=== PATIENT | female | born 1935 | race Caucasian/White ===

== ENCOUNTER 2017-11-12 19:50 | Inpatient (IN) | payer OTHER, MEDICAID ==
--- NOTE | 2017-11-12 20:04 | EDPHY ---
H & P Time Seen by Provider: 11/12/17 19:54 HPI/ROS: CHIEF COMPLAINT: Pneumonia HISTORY OF PRESENT ILLNESS: The patient is an 82-year-old female who comes from [facility] with a diagnosis of pneumonia. According to EMS report and paperwork it appears as though she was diagnosed with pneumonia over a week ago. On the she was started on oral azithromycin. The next day she had doxycycline. On the she was started on p.o. Levaquin. Today she was given IM Rocephin. intermediate staff told paramedics that they wanted to give IV Levaquin but could not establish an IV. The patient has been on 4 L of oxygen since her diagnosis and is saturating 93%. She has not had a fever. She denies having any type of pulmonary history to me. She also denies any type of cardiac history although according to the custodial record she has a history of atrial fibrillation and CHF. She also has diabetes and stage III renal disease. REVIEW OF SYSTEMS: Constitutional: denies: chills, fever, recent illness, recent injury EENTM: denies: blurred vision, double vision, nose congestion Respiratory: See HPI Cardiac: denies: chest pain, irregular heart rate, lightheadedness, palpitations Gastrointestinal/Abdominal: denies: abdominal pain, diarrhea, nausea, vomiting, blood streaked stools Genitourinary: denies: dysuria, frequency, hematuria, pain Musculoskeletal: denies: joint pain, muscle pain Skin: denies: lesions, rash, jaundice, bruising Neurological: denies: headache, numbness, paresthesia, tingling, dizziness, weakness Hematologic/Lymphatic: denies: blood clots, easy bleeding, easy bruising Immunologic/allergic: denies: HIV/AIDS, transplant EXAM: GENERAL: Weak, pale. HEAD: Atraumatic, normocephalic. EYES: Pupils equal round and reactive to light, extraocular movements intact, sclera anicteric, conjunctiva are normal. ENT: TMs normal, nares patent, oropharynx clear without exudates. Moist mucous membranes. NECK: Normal range of motion, supple without lymphadenopathy or JVD. LUNGS: Left lower lobe rhonchi HEART: Regular rate and rhythm without murmurs, rubs or gallops. ABDOMEN: Soft, nontender, normoactive bowel sounds. No guarding, no rebound. No masses appreciated. BACK: No CVA tenderness, no spinal tenderness, step-offs or deformities EXTREMITIES: Normal range of motion, no pitting or edema. No clubbing or cyanosis. NEUROLOGICAL: Cranial nerves II through XII grossly intact. Normal speech, normal gait. 5/5 strength, normal movement in all extremities, normal sensation PSYCH: Normal mood, normal affect. SKIN: Warm, dry, normal turgor, no visible rashes or lesions. Source: Patient Exam Limitations: Clinical condition - Medical/Surgical History Hx Asthma: No Hx Chronic Respiratory Disease: No Hx Diabetes: Yes Hx Cardiac Disease: Yes Hx Renal Disease: Yes Hx Cirrhosis: No Hx Alcoholism: No - Family History Significant Family History: No pertinent family hx - Social History Alcohol Use: Sober Drug Use: None Constitutional: Initial Vital Signs O2 Sat (%) 96 11/12/17 20:00 O2 Delivery Mode Nasal [place] O2 (L/minute) 3 Allergies/Adverse Reactions: ciprofloxacin Allergy (Verified 11/12/17 20:05) Sulfa (Sulfonamide Antibiotics) Allergy (Verified 11/12/17 20:05) Home Medications: Medication Instructions Recorded Acetaminophen [Tylenol ES 500 mg 500 mg PO BID 11/12/17 (*)] Acetaminophen [Tylenol ES 500 mg 500 mg PO Q6 PRN 11/12/17 (*)] Ascorbic Acid [Vitamin C 250 mg 250 mg PO BID 11/12/17 (*)] Azithromycin [Zithromax] 500 mg PO DAILY 11/12/17 Bisacodyl [Dulcolax] 10 mg RC DAILY PRN 11/12/17 Calcium Carbonate [Tums 500MG (*)] 500 mg PO Q4 PRN 11/12/17 Cyanocobalamin [Vitamin B12 (*)] 1,000 mcg PO DAILY 11/12/17 Docusate Sodium [Colace] 200 mg PO BID 11/12/17 Ergocalciferol (Vitamin D2) 50,000 unit PO DODGE 11/12/17 [Vitamin D2] FLUoxetine [Prozac 10 MG (*)] 10 mg PO DAILY 11/12/17 FLUoxetine [Prozac 20 MG (*)] 20 mg PO DAILY 11/12/17 Ferrous Sulfate [Ferrous Sulf 325 325 mg PO BID 11/12/17 MG (*)] Fluticasone Nasal [Flonase Nasal 1 sprays NASAL BID 11/12/17 [place] (RX)] Herbals/Supplements -Info Only 1 ea PO DAILY 11/12/17 Hydralazine HCl 100 mg PO TID 11/12/17 Hydrocortisone 1% [Hydrocortisone 1 lizabeth TP Q4 PRN 11/12/17 1% cream (*)] Insulin Glargine [Lantus 100 16 units SC HS 11/12/17 UNITS/ML (*)] Insulin Regular Human [Humulin R 6 unit SC HS PRN 11/12/17 100 units/ml (*)] Ipratropium/Albuterol [Duoneb (*)] 3 ml IH QID 11/12/17 Levothyroxine [Synthroid 75 mcg 75 mcg PO DAILY06 11/12/17 (*)] Lidocaine 5% [Lidocaine 5% Oint] 1 lizabeth TP TID PRN 11/12/17 Methenamine Ghulam [Hiprex 1 gm (*)] 0.5 gm PO BID 11/12/17 Metoprolol Tartrate [Lopressor 25 25 mg PO BID 11/12/17 mg (*)] Nystatin Powder [Mycostatin Powder 1 lizabeth TP Q8 PRN 11/12/17 (RX)] Omeprazole 20 mg PO DAILY 11/12/17 Ondansetron Odt [Zofran Odt 4 mg 4 mg PO Q8 PRN 11/12/17 (*)] Polyethylene Glycol 3350 [Miralax 17 gm PO DAILY PRN 11/12/17 17 gm (*)] Polyethylene Glycol 3350 [Miralax 17 gm PO MOTH@09 11/12/17 17 gm (*)] Pregabalin [Lyrica] 25 mg PO BID 11/12/17 Sennosides 8.6 mg PO BID 11/12/17 Sennosides/Docusate Sodium 1 each PO DAILY PRN 11/12/17 [Senokot-S (OTC)] Simethicone [Gas Relief] 80 mg PO Q6 PRN 11/12/17 Sodium Bicarbonate [Na Bicarb 650 650 mg PO DAILY 11/12/17 MG (RX)] Vitamin B Complex/Folic Acid 0.4 mg PO DAILY 11/12/17 [B-Complex Tablet] amLODIPine BESYLATE [Norvasc 10 mg 10 mg PO DAILY 11/12/17 (*)] cefTRIAXone [Rocephin 1 gm Vial] 1 gm IM ONCE 11/12/17 guaiFENesin [Mucinex 600 MG (*)] 600 mg PO BID 11/12/17 guaiFENesin/DEXTROMETHORPHAN 10 ml PO Q6 PRN 11/12/17 [Robitussin Dm Oral Liquid (*)] levOFLOXACIN [levAQUIN (*)] 500 mg PO DAILY 11/12/17 Medical Decision Making ED Course/Re-evaluation: The patient has a right upper lobe pneumonia. She is anemic. I performed a rectal exam and is black. I will order type and screen and 2 units. I paged hospital service admission and will seek antibiotic guidance. She does not meet criteria for severe sepsis. Differential Diagnosis: Partial list of the Differential diagnosis considered include but were not limited to; pneumonia, anemia, GI bleed, sepsis and although unlikely based on the history and physical exam, I also considered C diff, meningitis, PE, acute coronary disease. Critical Care Time: Critical care time spent by me, Dr. Pompa exclusive with this patient was 45 minutes, exclusive of the PA time exclusive of procedures. The organ system that was at risk was pulmonary and cardiovascular and I gave antibiotics, evaluation, fluids, blood, consultation and admission to prevent worsening of the patient's condition - Data Points Laboratory Results: Laboratory Results 11/13/17 06:37 11/13/17 06:37 Medications Given: Acetaminophen (Tylenol) 650 mg PO Q4HRS PRN PRN Reason: Pain, Mild/Fever, Can Take PO Stop: 05/11/18 22:42 Last Admin: 11/15/17 13:03 Dose: 650 mg Albuterol (Proventil Neb) 3 ml IH Q2HRS PRN PRN Reason: Short of Breath/Dyspnea Stop: 05/11/18 22:42 Last Admin: 11/13/17 20:52 Dose: 3 ml Albuterol/Ipratropium (Duoneb) 3 ml IH QID [facility] Stop: 05/12/18 11:59 Last Admin: 11/15/17 14:50 Dose: Not Given Amlodipine Besylate (Norvasc) 10 mg PO DAILY [facility] Stop: 05/13/18 08:59 Last Admin: 11/15/17 09:08 Dose: 10 mg Ascorbic Acid (Vitamin C) 250 mg PO BID [facility] Stop: 05/12/18 20:59 Last Admin: 11/15/17 09:09 Dose: 250 mg Docusate Sodium (Colace) 200 mg PO BID [place] Stop: 05/12/18 20:59 Last Admin: 11/15/17 09:07 Dose: 200 mg Ferrous Sulfate (Ferrous Sulfate) 325 mg PO BID [place] Stop: 05/12/18 20:59 Last Admin: 11/15/17 09:11 Dose: 325 mg Fluoxetine HCl (Prozac) 10 mg PO DAILY [place] Stop: 05/12/18 08:59 Last Admin: 11/15/17 09:09 Dose: 10 mg Fluoxetine HCl (Prozac) 20 mg PO DAILY [place] Stop: 05/12/18 08:59 Last Admin: 11/15/17 09:10 Dose: 20 mg Fluticasone Propionate (Flonase Nasal [place]) 1 sprays [place] BID [facility] Stop: 05/12/18 20:59 Last Admin: 11/15/17 09:13 Dose: 1 spray Guaifenesin (Mucinex) 600 mg PO BID [facility] Stop: 05/12/18 20:59 Last Admin: 11/15/17 09:09 Dose: 600 mg Hydralazine HCl (Apresoline) 100 mg PO TID [facility] Stop: 05/12/18 15:59 Last Admin: 11/15/17 09:08 Dose: 100 mg Piperacillin/Tazobactam/Dextrose (Zosyn 3.375 Gm (Premix)) 50 mls @ 100 mls/hr IV Q6HRS [facility] PRN Reason: Protocol Stop: 12/14/17 17:59 Last Admin: 11/15/17 12:08 Dose: 50 mls Insulin Glargine (Lantus Syringe) 16 units SC HS [facility] Stop: 05/12/18 20:59 Last Admin: 11/14/17 21:30 Dose: 16 units Insulin Human Lispro (Humalog Lispro) 0 unit SC TIDMEAL [place] PRN Reason: Protocol Stop: 05/12/18 07:59 Last Admin: 11/15/17 12:06 Dose: Not Given Levothyroxine Sodium (Synthroid) 75 mcg PO DAILY06 [facility] Stop: 05/13/18 05:59 Last Admin: 11/15/17 05:35 Dose: 75 mcg Melatonin (Melatonin) 3 mg PO HS PRN PRN Reason: Sleep/Insomnia Stop: 05/13/18 22:52 Last Admin: 11/14/17 23:11 Dose: 3 mg Metoprolol Tartrate (Lopressor) 25 mg PO BID [place] Stop: 05/12/18 10:59 Last Admin: 11/15/17 09:10 Dose: 25 mg Miscellaneous Medication (Vitamin B Complex/Folic Acid [B-Complex Tablet]) 0.4 mg PO DAILY [facility] Stop: 05/13/18 08:59 Last Admin: 11/15/17 09:13 Dose: Not Given Olanzapine (Zyprexa) 2.5 mg PO HS PRN PRN Reason: anxiety Stop: 05/13/18 20:59 Last Admin: 11/14/17 20:49 Dose: 2.5 mg Ondansetron HCl (Zofran) 4 mg IVP Q4HRS PRN PRN Reason: Nausea/Vomiting, Can't Take PO Stop: 05/11/18 22:42 Last Admin: 11/13/17 23:11 Dose: 4 mg Pantoprazole Sodium (Protonix) 40 mg PO DAILY [place] Stop: 05/12/18 11:29 Last Admin: 11/15/17 09:12 Dose: 40 mg Polyethylene Glycol (Miralax) 17 gm PO MOTH@09 [facility] Stop: 05/13/18 08:59 Last Admin: 11/14/17 09:09 Dose: 17 gm Pregabalin (Lyrica) 25 mg PO BID [place] Stop: 05/12/18 10:59 Last Admin: 11/15/17 09:07 Dose: 25 mg Senna (Senokot) 1 tab PO BID [place] Stop: 05/12/18 20:59 Last Admin: 11/15/17 09:07 Dose: 1 tab Sodium Bicarbonate (Na Bicarb) 650 mg PO DAILY [place] Stop: 05/13/18 08:59 Last Admin: 11/15/17 09:10 Dose: 650 mg Tramadol HCl (Ultram) 25 mg PO Q6 PRN PRN Reason: Pain, Moderate Able to Take PO Stop: 05/13/18 17:04 Last Admin: 11/14/17 23:28 Dose: 25 mg Vitamin B Complex (Vitamin B12) 1,000 mcg PO DAILY [place] Stop: 05/12/18 10:59 Last Admin: 11/15/17 09:09 Dose: 1,000 mcg Discontinued Medications Haloperidol Lactate (Haldol Injection) 2 mg IVP ONCE ONE Stop: 11/14/17 04:08 Last Admin: 11/14/17 04:13 Dose: 2 mg Cefepime HCl 1 gm/ Sterile (Water) 11.3 mls @ 135.6 mls/hr IV EDNOW ONE PRN Reason: Protocol Stop: 11/12/17 21:46 Last Admin: 11/12/17 22:11 Dose: 11.3 mls Cefepime HCl 2 gm/ Sterile (Water) 12.5 mls @ 150 mls/hr IV DAILY [place] PRN Reason: Protocol Stop: 12/13/17 08:59 Last Admin: 11/14/17 09:13 Dose: 12.5 mls Sodium Chloride (Ns) 1,000 mls @ 100 mls/hr IV CONT [place] Stop: 05/12/18 17:59 Last Admin: 11/13/17 17:27 Dose: 1,000 mls Methenamine Mandelate (Methenamine Ghulam) 0.5 gm PO BID [place] PRN Reason: Protocol Stop: 12/13/17 20:59 Last Admin: 11/14/17 09:11 Dose: 0.5 gm Olanzapine (Zyprexa) 2.5 mg PO ONCE ONE Stop: 11/14/17 22:52 Last Admin: 11/14/17 23:11 Dose: 2.5 mg Departure - Departure Disposition: [facility] Inpatient Acute Clinical Impression: Upper GI bleed Pneumonia Qualifiers: Pneumonia type: due to unspecified organism Laterality: right Lung location: upper lobe of lung Qualified Code(s): J18.1 - Lobar pneumonia, unspecified organism Sepsis Qualifiers: Sepsis type: sepsis due to unspecified organism Qualified Code(s): A41.9 - Sepsis, unspecified organism Condition: Fair
[2017-11-12 20:54] LABS: PLATELET COUNT 273 10^3/uL (150-400)
[2017-11-12 21:05] LABS: INR 1.14 (0.83-1.16); PROTIME(PATIENT) 14.8 SEC (12.0-15.0)
[2017-11-12] MEDS ORDERED: CEFEPIME HCL 1 GM in STERILE WATER INJ 11.3 ML IV ONE (21:42)
[2017-11-12] MEDS ORDERED: ONDANSETRON 4 MG/2 ML VIAL IVP PRN (22:43)
[2017-11-12] MEDS ORDERED: ONDANSETRON DISINTEGRATING 4 MG TAB PO PRN (22:43)
[2017-11-12] MEDS ORDERED: ALBUTEROL 3 ML DEYVIAL IH PRN (22:43)
[2017-11-12] MEDS ORDERED: D50W 25 GM/50 ML SYR IVP PRN (23:47)
[2017-11-12] MEDS ORDERED: D50W 25 GM/50 ML VIAL IVP PRN (23:48)
--- NOTE | 2017-11-13 01:49 | PDGENHP ---
History and Physical - Chief Complaint Cough, fatigue - History of Present Illness 82 yo F w/ AF, CHF, DM, CKD, and HTN presents with 3 weeks of fatigue, cough, sputum production, and chills. Patient has been under treatment for pneumonia for [address] [facility]. She initially received azithromycin, then Levaquin , and finally CTX x1. It is unclear why antibiotics were changed but I assume 2/ 2 lack of improvement. She has been hypoxic and does not usually require O2. In addition, patient has noted some dark stools for at least a month. She has a hard time describing exactly how long this has been going on. Rectal exam in the ED did reveal dark stools. History Information - Allergies/Home Medication List Allergies/Adverse Reactions: ciprofloxacin Allergy (Verified 11/12/17 20:05) Sulfa (Sulfonamide Antibiotics) Allergy (Verified 11/12/17 20:05) Home Medications: Acetaminophen [Tylenol ES 500 mg (*)] 500 mg PO BID 11/12/17 [Last Taken Unknown ] Acetaminophen [Tylenol ES 500 mg (*)] 500 mg PO Q6 PRN 11/12/17 [Last Taken Unknown] Ascorbic Acid [Vitamin C 250 mg (*)] 250 mg PO BID 11/12/17 [Last Taken Unknown] Azithromycin [Zithromax] 500 mg PO DAILY 11/12/17 [Last Taken Unknown] Bisacodyl [Dulcolax] 10 mg RC DAILY PRN 11/12/17 [Last Taken Unknown] Calcium Carbonate [Tums 500MG (*)] 500 mg PO Q4 PRN 11/12/17 [Last Taken Unknown ] Cyanocobalamin [Vitamin B12 (*)] 1,000 mcg PO DAILY 11/12/17 [Last Taken Unknown ] Docusate Sodium [Colace] 200 mg PO BID 11/12/17 [Last Taken Unknown] Ergocalciferol (Vitamin D2) [Vitamin D2] 50,000 unit PO DODGE 11/12/17 [Last Taken Unknown] FLUoxetine [Prozac 10 MG (*)] 10 mg PO DAILY 11/12/17 [Last Taken Unknown] FLUoxetine [Prozac 20 MG (*)] 20 mg PO DAILY 11/12/17 [Last Taken Unknown] Ferrous Sulfate [Ferrous Sulf 325 MG (*)] 325 mg PO BID 11/12/17 [Last Taken Unknown] Fluticasone Nasal [Flonase Nasal [place] (RX)] 1 sprays NASAL BID 11/12/17 [Last Taken Unknown] Herbals/Supplements -Info Only 1 ea PO DAILY 11/12/17 [Last Taken Unknown] Hydralazine HCl 100 mg PO TID 11/12/17 [Last Taken Unknown] Hydrocortisone 1% [Hydrocortisone 1% cream (*)] 1 lizabeth TP Q4 PRN 11/12/17 [Last Taken Unknown] Insulin Glargine [Lantus 100 UNITS/ML (*)] 16 units SC HS 11/12/17 [Last Taken Unknown] Insulin Regular Human [Humulin R 100 units/ml (*)] 6 unit SC HS PRN 11/12/17 [ Last Taken Unknown] Ipratropium/Albuterol [Duoneb (*)] 3 ml IH QID 11/12/17 [Last Taken Unknown] Levothyroxine [Synthroid 75 mcg (*)] 75 mcg PO DAILY06 11/12/17 [Last Taken Unknown] Lidocaine 5% [Lidocaine 5% Oint] 1 lizabeth TP TID PRN 11/12/17 [Last Taken Unknown] Methenamine Ghulam [Hiprex 1 gm (*)] 0.5 gm PO BID 11/12/17 [Last Taken Unknown] Metoprolol Tartrate [Lopressor 25 mg (*)] 25 mg PO BID 11/12/17 [Last Taken Unknown] Nystatin Powder [Mycostatin Powder (RX)] 1 lizabeth TP Q8 PRN 11/12/17 [Last Taken Unknown] Omeprazole 20 mg PO DAILY 11/12/17 [Last Taken Unknown] Ondansetron Odt [Zofran Odt 4 mg (*)] 4 mg PO Q8 PRN 11/12/17 [Last Taken Unknown] Polyethylene Glycol 3350 [Miralax 17 gm (*)] 17 gm PO DAILY PRN 11/12/17 [Last Taken Unknown] Polyethylene Glycol 3350 [Miralax 17 gm (*)] 17 gm PO MOTH@09 11/12/17 [Last Taken Unknown] Pregabalin [Lyrica] 25 mg PO BID 11/12/17 [Last Taken Unknown] Sennosides 8.6 mg PO BID 11/12/17 [Last Taken Unknown] Sennosides/Docusate Sodium [Senokot-S (OTC)] 1 each PO DAILY PRN 11/12/17 [Last Taken Unknown] Simethicone [Gas Relief] 80 mg PO Q6 PRN 11/12/17 [Last Taken Unknown] Sodium Bicarbonate [Na Bicarb 650 MG (RX)] 650 mg PO DAILY 11/12/17 [Last Taken Unknown] Vitamin B Complex/Folic Acid [B-Complex Tablet] 0.4 mg PO DAILY 11/12/17 [Last Taken Unknown] amLODIPine BESYLATE [Norvasc 10 mg (*)] 10 mg PO DAILY 11/12/17 [Last Taken Unknown] cefTRIAXone [Rocephin 1 gm Vial] 1 gm IM ONCE 11/12/17 [Last Taken 11/12/17] guaiFENesin [Mucinex 600 MG (*)] 600 mg PO BID 11/12/17 [Last Taken Unknown] guaiFENesin/DEXTROMETHORPHAN [Robitussin Dm Oral Liquid (*)] 10 ml PO Q6 PRN [Last Taken Unknown] levOFLOXACIN [levAQUIN (*)] 500 mg PO DAILY 11/12/17 [Last Taken Unknown] I have personally reviewed and updated: family history, medical history - Past Medical History atrial fibrillation, CHF, diabetes type 2, hypertension Additional medical history: CKD - Family History Positive for: cancer, diabetes type II, hypertension - Social History Smoking Status: Never smoked Alcohol Use: Sober Drug Use: None Review of Systems Review of Systems: ROS: 10pt was reviewed & negative except for what was stated in HPI & below Physical Exam Physical Exam: Temp Pulse Resp BP Pulse Ox 36.8 C 77 20 137/64 H 94 11/12/17 23:18 11/12/17 23:18 11/12/17 23:18 11/12/17 23:18 11/12/17 23:18 O2 (L/minute) 3 Constitutional: no apparent distress, obese Eyes: PERRL Ears, Nose, Mouth, Throat: moist mucous membranes, no oral mucosal ulcers Cardiovascular: regular rate and rhythym, systolic murmur Respiratory: no respiratory distress, inspiratory crackles (RUL) Gastrointestinal: normoactive bowel sounds, soft, non-tender abdomen Skin: warm, normal color Musculoskeletal: full muscle strength, no muscle tenderness Neurologic: AAOx3, CN II-XII Intact Psychiatric: interacting appropriately, not anxious Lab Data & Imaging Review 11/12/17 20:38 11/12/17 20:38 WBC 8.87 10^3/uL (3.80-9.50) 11/12/17 20:38 RBC 2.93 10^6/uL (4.18-5.33) L 11/12/17 20:38 Hgb 8.6 g/dL (12.6-16.3) L 11/12/17 20:38 Hct 26.3 % (38.0-47.0) L 11/12/17 20:38 MCV 89.8 fL (81.5-99.8) 11/12/17 20:38 MCH 29.4 pg (27.9-34.1) 11/12/17 20:38 MCHC 32.7 g/dL (32.4-36.7) 11/12/17 20:38 RDW 14.0 % (11.5-15.2) 11/12/17 20:38 Plt Count 273 10^3/uL (150-400) 11/12/17 20:38 MPV 10.3 fL (8.7-11.7) 11/12/17 20:38 Neut % (Auto) 80.6 % (39.3-74.2) H 11/12/17 20:38 Lymph % (Auto) 7.9 % (15.0-45.0) L 11/12/17 20:38 Ray % (Auto) 9.7 % (4.5-13.0) 11/12/17 20:38 Eos % (Auto) 1.0 % (0.6-7.6) 11/12/17 20:38 Baso % (Auto) 0.3 % (0.3-1.7) 11/12/17 20:38 Nucleat RBC Rel Count 0.0 % (0.0-0.2) 11/12/17 20:38 Absolute Neuts (auto) 7.15 10^3/uL (1.70-6.50) H 11/12/17 20:38 Absolute Lymphs (auto) 0.70 10^3/uL (1.00-3.00) L 11/12/17 20:38 Absolute Monos (auto) 0.86 10^3/uL (0.30-0.80) H 11/12/17 20:38 Absolute Eos (auto) 0.09 10^3/uL (0.03-0.40) 11/12/17 20:38 Absolute Basos (auto) 0.03 10^3/uL (0.02-0.10) 11/12/17 20:38 Absolute Nucleated RBC 0.00 10^3/uL (0-0.01) 11/12/17 20:38 Immature Gran % 0.5 % (0.0-1.1) 11/12/17 20:38 Immature Gran # 0.04 10^3/uL (0.00-0.10) 11/12/17 20:38 PT 14.8 SEC (12.0-15.0) 11/12/17 20:38 INR 1.14 (0.83-1.16) 11/12/17 20:38 APTT 45.6 SEC (23.0-38.0) H 11/12/17 20:38 VBG Lactic Acid 0.6 mmol/L (0.7-2.1) L 11/12/17 20:38 Sodium 134 mEq/L (135-145) L 11/12/17 20:38 Potassium 4.1 mEq/L (3.5-5.2) 11/12/17 20:38 Chloride 106 mEq/L (97-110) 11/12/17 20:38 Carbon Dioxide 19 mEq/l (22-31) L 11/12/17 20:38 Anion Gap 9 mEq/L (8-16) 11/12/17 20:38 BUN 52 mg/dL (7-23) H 11/12/17 20:38 Creatinine 2.4 mg/dL (0.6-1.0) H 11/12/17 20:38 Estimated GFR 19 11/12/17 20:38 Glucose 135 mg/dL (70-100) H 11/12/17 20:38 POC Glucose 142 mg/dL (70-100) H 11/12/17 23:41 Calcium 7.6 mg/dL (8.5-10.4) L 11/12/17 20:38 Total Bilirubin 0.3 mg/dL (0.1-1.4) 11/12/17 20:38 Procalcitonin 0.79 ng/mL (0.02-0.10) H 11/12/17 20:38 Urine Color YELLOW 11/12/17 21:05 Urine Appearance MODERATELY TURBID 11/12/17 21:05 Urine pH 5.0 (5.0-7.5) 11/12/17 21:05 Ur Specific [place] 1.012 (1.002-1.030) 11/12/17 21:05 Urine Protein 2+ (NEGATIVE) H 11/12/17 21:05 Urine Ketones NEGATIVE (NEGATIVE) 11/12/17 21:05 Urine Blood NEGATIVE (NEGATIVE) 11/12/17 21:05 Urine Nitrate NEGATIVE (NEGATIVE) 11/12/17 21:05 Urine Bilirubin NEGATIVE (NEGATIVE) 11/12/17 21:05 Urine Urobilinogen NEGATIVE EU (0.2-1.0) 11/12/17 21:05 Ur Leukocyte Esterase NEGATIVE (NEGATIVE) 11/12/17 21:05 Urine RBC 1-3 /hpf (0-3) 11/12/17 21:05 Urine WBC 5-10 /hpf (0-3) H 11/12/17 21:05 Ur Epithelial Cells TRACE /lpf (NONE-1+) 11/12/17 21:05 Amorphous Sediment PRESENT /hpf (NONE-1+) 11/12/17 21:05 Urine Bacteria TRACE /hpf (NONE SEEN) H 11/12/17 21:05 Urine Mucus TRACE /lpf (NONE-1+) 11/12/17 21:05 Urine Glucose 1+ (NEGATIVE) H 11/12/17 21:05 Patient ABO/Rh B NEGATIVE 11/12/17 21:05 Antibody Screen NEGATIVE 11/12/17 21:05 Crossmatch IS Only See Detail 11/12/17 21:05 Imaging Review: Imaging Impressions Chest X-Ray 11/12/17 19:59 Impression: 1. Hazy opacification of the right upper chest compatible with infectious or inflammatory infiltrate. 2. Moderate cardiomegaly with pulmonary vascular congestion. Assessment & Plan Assessment: 82 yo F w/ CHF, HTN, DM, AF, and CKD presents with pneumonia and associated hypoxia. Plan: 1. Pneumonia - Based on productive cough, hypoxia, and RUL infiltrate on CXR. Patient received azithromycin, levofloxacin, and CTX and [place] with minimal improvement. No evidence of sepsis physiology on admission. Procalcitonin elevated at 0.7 and lactic acid WNL. - Will broaden to Cefepime (renal dosing) noting lack of improvement with myriad of prior antibiotics - Blood cultures, respiratory PCR 2. AHRF - Likely 2/2 above. She does not require O2 at baseline; currently on 2- 3 L/min O2 via NC. - PNA management as above - Incentive spirometry, wean O2 as able 3. Normocytic anemia - Hgb 8.6 on admission, unclear chronicity noting no prior values for comparison. Patient does note dark stools for at least a month but she is also on oral iron, which may be contributing. She is hemodynamically stable and not tachycardic; she denies prior hx of significant GIB. - Transfused 2u pRBC by ED - Monitor CBC - Transfuse for Hgb<7 - If Hgb stable likely appropriate for outpatient colonoscopy 4. IDDM - Uses insulin glargine 16u qHS + SSI as outpatient, will continue here. 5. HTN - Continue home meds, needs med reconciliation. 6. Hypothyroid - On LTX. Diet - Regular Code - Full Ppx - SCDs noting possible melena Dispo - Admit under observation status
[2017-11-13] MEDS: ACETAMINOPHEN 325 MG TAB PO PRN ×2 (04:43→12:27)
[2017-11-13 06:53] LABS: PLATELET COUNT 269 10^3/uL (150-400)
[2017-11-13] MEDS: INSULIN LISPRO 100 UNIT/ML SC SCH ×3 (08:07→18:32)
[2017-11-13] MEDS: CEFEPIME HCL 2 GM in STERILE WATER INJ 12.5 ML IV SCH (08:08)
--- NOTE | 2017-11-13 09:29 | WOCRNPDOC ---
WOCRN Advanced Assessment Note - Skin Integrity Problem, Advanced Assess Right Medial Heel Pressure Injury Dressing Type: Open to Air [place] Wound Tissue: Blanching, Erythema Skin Integrity Problem Comment: No pressure injury at this time. Area is blanching but painful. Please offload agressively. Bilateral Buttock Dressing Type: [place] Life Integumentary Issue Intervention: Visualized Under Dressing Site Measurement - Head-to-Toe Length X Width X Depth (cm): 1.5x1.2x0.1 on left , right side intact Pressure Injury Stage: Stage 2 Pressure Injury Present on Admit: Yes Skin Integrity Problem Comment: Right: small round area of blanching erythema with scar tissue. Left: paritial thickness opening that is most likely friction related rather than pressure but may have components of both. Wound care will sign off. Please offload per policy.
[2017-11-13] MEDS ORDERED: BISACODYL 10 MG SUPP PR PRN (10:54)
[2017-11-13] MEDS ORDERED: CALCIUM CARBONATE 500 MG CHEWABLE TAB PO PRN (10:54)
[2017-11-13] MEDS ORDERED: SIMETHICONE 80 MG TAB CHEW PO PRN (10:54)
[2017-11-13] MEDS ORDERED: POLYETHYLENE GLYCOL 3350 17 GM PKT PO PRN (10:54)
[2017-11-13] MEDS ORDERED: HYDROCORTISONE 1% CREAM TP PRN (10:54)
[2017-11-13] MEDS ORDERED: ACETAMINOPHEN 500 MG TAB PO PRN (10:54)
[2017-11-13] MEDS ORDERED: SENNOSIDES/DOCUSATE SODIUM TAB PO PRN (10:54)
[2017-11-13] MEDS ORDERED: NYSTATIN POWDER 15 GM BTL TP PRN (10:54)
[2017-11-13] MEDS ORDERED: ONDANSETRON DISINTEGRATING 4 MG TAB PO PRN (10:54)
[2017-11-13] MEDS ORDERED: GUAIFENESIN/DM 10 ML UDCUP PO PRN (10:54)
[2017-11-13] MEDS ORDERED: Lidocaine 5% [Lidocaine 5% Oint] 1 APP TP PRN (10:54)
[2017-11-13] MEDS ORDERED: INSULIN REGULAR HUMAN 100 UNIT/ML UNIT SC PRN (11:30)
[2017-11-13] MEDS: IPRATROPIUM/ALBUTEROL 3 ML DEYVIAL IH SCH ×2 (11:36→17:03)
[2017-11-13] MEDS: FLUoxetine 10 MG CAP PO SCH (12:11)
[2017-11-13] MEDS: FLUoxetine 20 MG CAP PO SCH (12:11)
[2017-11-13] MEDS: METOPROLOL TARTRATE 25 MG TAB PO SCH ×2 (12:12→21:51)
[2017-11-13] MEDS: PREGABALIN 25 MG CAP PO SCH ×2 (12:13→21:53)
[2017-11-13] MEDS: PANTOPRAZOLE SODIUM 40 MG TAB PO SCH (12:28)
[2017-11-13] MEDS: CYANO/VITAMIN B12 1000 MCG TAB PO SCH (12:28)
--- NOTE | 2017-11-13 14:00 | HOSPPROG ---
Hospitalist Progress Note Assessment/Plan: 82 yo F w/ CHF, HTN, DM, AF, and CKD presents with pneumonia and associated hypoxia. First encounter, chart reviewed. Plan: 1. Pneumonia - -productive cough, hypoxia, and RUL infiltrate on CXR. -Patient received azithromycin, levofloxacin, and CTX and [place] with minimal improvement. -No evidence of sepsis physiology on admission. -Procalcitonin elevated at 0.7 and lactic acid WNL. -Will broaden to Cefepime (renal dosing) noting lack of improvement with myriad of prior antibiotics -Blood cultures, respiratory PCR 2. AHRF - -Likely 2/2 above. She does not require O2 at baseline; currently on 2-3 L/min O2 via NC. -PNA management as above -Incentive spirometry, wean O2 as able 3. Normocytic anemia - -Hgb 8.6 on admission, unclear chronicity noting no prior values for comparison. -Patient does note dark stools for at least a month but she is also on oral iron , which may be contributing. -She is hemodynamically stable and not tachycardic; she denies prior hx of significant GIB. -Transfused 2u pRBC by ED -heme stool -Monitor CBC -Transfuse for Hgb<7 -If Hgb stable likely appropriate for outpatient colonoscopy 4. IDDM - -Uses insulin glargine 16u qHS + SSI as outpatient, will continue here. 5. HTN - -Continue home meds, med reconciled. 6. Hypothyroid - -On LTX. 7. Rash -on back -pt says intermittent -itches -follow, no specific pattern identified Diet - Regular Code - Full Ppx - SCDs noting possible melena Dispo - change to inpt status needs further treatment and evaluation in hospital Subjective: Very tired. Not feeling well. Objective: Vital Signs Temp Pulse Resp BP Pulse Ox 37.4 C 87 16 153/64 H 94 11/13/17 07:44 11/13/17 12:12 11/13/17 11:37 11/13/17 12:12 11/13/17 11:37 Laboratory Results 11/13/17 06:37 11/13/17 06:37 11/12/17 11/13/17 11/14/17 05:59 05:59 05:59 Intake Total 700 Output Total 2 Balance 698 PT 14.8 SEC (12.0-15.0) 11/12/17 20:38 INR 1.14 (0.83-1.16) 11/12/17 20:38 - Physical Exam Constitutional: appears nourished, chronically ill appearing, uncomfortable Eyes: PERRL, anicteric sclera, EOMI Ears, Nose, Mouth, Throat: moist mucous membranes, hearing normal, ears appear normal Cardiovascular: regular rate and rhythym, No JVD, No tachycardia, No edema Respiratory: no respiratory distress, no rales or rhonchi, reduced air movement Gastrointestinal: No tenderness, No ascites, No guarding, No distension Skin: warm, normal color, rash Musculoskeletal: normal joint ROM, no joint effusions, generalized weakness Neurologic: AAOx3 Psychiatric: not anxious, not encephalopathic, poor memory ICD10 Worksheet Patient Problems: Problems Problem Status Onset Pneumonia Acute Upper GI bleed Acute Sepsis Acute
--- NOTE | 2017-11-13 15:24 | PDMN ---
Medical Necessity Medical necessity: M282c PNA hypoxia currently 3 L to keeps sats > 90%, RUL infiltrate on CXR, cough, min. improvement on IV abx, cont IV abx( broaden to Cefepime), normocytic anemia pt received 2 units pRBC in ED - cont. monitoring > 2 midnights.
--- NOTE | 2017-11-13 16:08 | ASMTCMCOM ---
CM Note CM Note Notes: Spoke w/Sonya at [facility], pt is a jail care resident there, not [facility] as stated in H&P. Pt's son Noé states that his sister took care of her and her brother but his sister , so he moved them up here and her and her brother are now both at [facility]. DC Plan: LTC/ [facility] Date Signed: 11/13/2017 04:07 PM Electronically Signed By:Debora Ware RN
[2017-11-13] MEDS ORDERED: NS 1,000 ML IV SCH (18:00)
[2017-11-13] MEDS ORDERED: INSULIN GLARGINE 100 UNITS/ML UNIT SC SCH (21:00)
[2017-11-13] MEDS: FERROUS SULFATE 325 MG TAB PO SCH (21:51)
[2017-11-13] MEDS: ASCORBIC ACID 500 MG TAB PO SCH (21:52)
[2017-11-13] MEDS: SENNOSIDES 1 TAB PO SCH (21:52)
[2017-11-13] MEDS: guaiFENesin 600 MG TAB.ER PO SCH (21:53)
[2017-11-13] MEDS: METHENAMINE HIPP 1 GM TAB PO SCH (21:54)
[2017-11-13] MEDS: DOCUSATE SODIUM 100 MG CAP PO SCH (21:55)
[2017-11-13] MEDS: FLUTICASONE NASAL 120 SPRAYS/16 GM MDI EACHNARE SCH (23:07)
[2017-11-13] MEDS: INSULIN GLARGINE 100 UNITS/ML UNIT SC SCH (23:07)
[2017-11-13] MEDS: OLANZapine 2.5 MG TAB PO PRN (23:11)
[2017-11-14] MEDS: ACETAMINOPHEN 325 MG TAB PO PRN ×4 (03:13→20:49)
[2017-11-14] MEDS ORDERED: HALOPERIDOL LACT 5 MG/ML INJ IVP ONE (04:07)
[2017-11-14] MEDS: LEVOTHYROXINE 75 MCG TAB PO SCH (04:13)
[2017-11-14] MEDS: IPRATROPIUM/ALBUTEROL 3 ML DEYVIAL IH SCH ×4 (05:13→22:06)
[2017-11-14] MEDS ORDERED: Herbals/Supplements -Info Only PO SCH (09:00)
[2017-11-14] MEDS: INSULIN LISPRO 100 UNIT/ML SC SCH ×3 (09:04→18:25)
[2017-11-14] MEDS: POLYETHYLENE GLYCOL 3350 17 GM PKT PO SCH (09:09)
[2017-11-14] MEDS: DOCUSATE SODIUM 100 MG CAP PO SCH ×2 (09:10→21:30)
[2017-11-14] MEDS: PREGABALIN 25 MG CAP PO SCH ×2 (09:10→21:30)
[2017-11-14] MEDS: guaiFENesin 600 MG TAB.ER PO SCH ×2 (09:10→21:31)
[2017-11-14] MEDS: FLUoxetine 10 MG CAP PO SCH (09:10)
[2017-11-14] MEDS: METOPROLOL TARTRATE 25 MG TAB PO SCH ×2 (09:11→21:32)
[2017-11-14] MEDS: PANTOPRAZOLE SODIUM 40 MG TAB PO SCH (09:11)
[2017-11-14] MEDS: METHENAMINE HIPP 1 GM TAB PO SCH (09:11)
[2017-11-14] MEDS: SODIUM BICARBONATE 650 MG TAB PO SCH (09:11)
[2017-11-14] MEDS: CYANO/VITAMIN B12 1000 MCG TAB PO SCH (09:11)
[2017-11-14] MEDS: SENNOSIDES 1 TAB PO SCH ×2 (09:11→21:31)
[2017-11-14] MEDS: ASCORBIC ACID 500 MG TAB PO SCH ×2 (09:11→21:31)
[2017-11-14] MEDS: FERROUS SULFATE 325 MG TAB PO SCH ×2 (09:12→21:31)
[2017-11-14] MEDS: CEFEPIME HCL 2 GM in STERILE WATER INJ 12.5 ML IV SCH (09:13)
[2017-11-14] MEDS: FOLIC ACID PO SCH (09:14)
[2017-11-14] MEDS: FLUoxetine 20 MG CAP PO SCH (09:14)
[2017-11-14] MEDS: VITAMIN B COMPLEX PO SCH (09:14)
[2017-11-14] MEDS: FLUTICASONE NASAL 120 SPRAYS/16 GM MDI EACHNARE SCH ×2 (09:24→22:43)
[2017-11-14 09:59] LABS: PLATELET COUNT 298 10^3/uL (150-400)
[2017-11-14] MEDS: OLANZapine 2.5 MG TAB PO PRN ×2 (11:16→20:49)
--- NOTE | 2017-11-14 13:17 | HOSPPROG ---
Hospitalist Progress Note Assessment/Plan: 82 yo F w/ CHF, HTN, DM, AF, and CKD presents with pneumonia and associated hypoxia. Plan: 1. Pneumonia - -productive cough, hypoxia, and RUL infiltrate on CXR. -Patient received azithromycin, levofloxacin, and CTX and [place] with minimal improvement. -No evidence of sepsis physiology on admission. -Procalcitonin elevated at 0.7 and lactic acid WNL. -Was on Cefepime (renal dosing) will change to Zosyn -potential the abx causing increased confusion? -Blood cultures, respiratory PCR negative 2. AHRF - -Likely 2/2 above. She does not require O2 at baseline; currently on 2-3 L/min O2 via NC. -PNA management as above -Incentive spirometry, wean O2 as able 3. Normocytic anemia - -Hgb 8.6 on admission, unclear chronicity noting no prior values for comparison. -Patient does note dark stools for at least a month but she is also on oral iron , which may be contributing. -She is hemodynamically stable and not tachycardic; she denies prior hx of significant GIB. -Transfused 2u pRBC by ED -heme stool -Monitor CBC -Transfuse for Hgb<7 -Hgb stable likely appropriate for outpatient colonoscopy 4. IDDM - -Uses insulin glargine 16u qHS + SSI as outpatient, will continue here. 5. HTN - -Continue home meds, med reconciled. 6. Hypothyroid - -On LTX. 7. Rash -on back -pt says intermittent -itches -follow, no specific pattern identified 8. CRF -d/w Dr Wesley -appreciate consult 9.Acute on chronic confusion -cont supportive care Diet - Regular Code - Full Ppx - SCDs noting possible melena Dispo - change to inpt status needs further treatment and evaluation in hospital will return to when able Subjective: Very tired today. Confused. No pain. Objective: Vital Signs Temp Pulse Resp BP Pulse Ox 36.7 C 73 16 94/69 L 96 11/14/17 10:41 11/14/17 10:41 11/14/17 10:41 11/14/17 10:41 11/14/17 10:41 Laboratory Results 11/14/17 09:52 11/14/17 09:52 11/13/17 11/14/17 11/15/17 05:59 05:59 05:59 Intake Total 626 Output Total 600 Balance 26 PT 14.8 SEC (12.0-15.0) 11/12/17 20:38 INR 1.14 (0.83-1.16) 11/12/17 20:38 - Physical Exam Constitutional: chronically ill appearing, obese, uncomfortable Eyes: PERRL, anicteric sclera, EOMI Ears, Nose, Mouth, Throat: moist mucous membranes, hearing normal, ears appear normal Cardiovascular: No JVD, No tachycardia, No edema Respiratory: no respiratory distress, no rales or rhonchi, reduced air movement Gastrointestinal: normoactive bowel sounds, No tenderness, No ascites Skin: warm, normal color, No mottled Musculoskeletal: normal joint ROM, no joint effusions, generalized weakness Neurologic: No AAOx3 Psychiatric: not anxious, poor insight, poor judgement, poor memory, No thought process linear ICD10 Worksheet Patient Problems: Problems Problem Status Onset Pneumonia Acute Upper GI bleed Acute Sepsis Acute
--- NOTE | 2017-11-14 14:41 | GCON ---
[f rep st] CONSULTATION DATE OF CONSULTATION: 11/14/2017 REQUESTING PHYSICIAN: Cathleen Santana. REASON FOR CONSULTATION: Chronic kidney disease, pneumonia. HISTORY OF PRESENT ILLNESS: Ms. Hart is an 82-year-old female who is followed by my partner, Dr Nabeel Lafleur for chronic kidney disease. She is admitted to the hospital for pneumonia that failed to resp ond to outpatient antibiotics at [facility]. She received Levaquin and Zithromax followed by ceft riaxone over the course of about a week, but continued to have productive cough, hypoxia and dyspnea. She was admitted here 2 days ago and started on cefepime. She has become increasingly confused. Her renal history is as follows. Her creatinine has been 1.5 since 2004. In 2013 she had EFREN and he r creatinine bumped to 2.5, subsequently was between 1.8 and 1.9. She is diabetic and hypertensive a nd also has recurrent urinary tract infections. She had 2 g proteinuria in 2013. Her creatinine was increased to 2.1 in June 2017 and then 2.4 in October of this year. She has some difficulties w ith blood pressure control historically. She has not been a candidate for CARLEY inhibitor due to borde rline hyperkalemia. We were asked to assist in management of her renal disease. History is taken from claire Brooke of electronic medical record here and from our office and with some limited discussion with the aruna ordaz who was confused. I have summarized everything here. PAST MEDICAL HISTORY: See HPI. Diabetes mellitus type 2 with peripheral neuropathy, hypertension, l ower extremity edema, borderline hyperkalemia, urinary incontinence, recurrent urinary tract infectio ns on methenamine and previously seen by Urology, atrial fibrillation, diastolic heart failure, hypot hyroidism, anemia, spinal stenosis, bipolar disease, secondary hyperparathyroidism. SURGICAL HISTORY: Hysterectomy, bladder surgery, tonsillectomy, cataract surgeries bilaterally. FAMILY HISTORY: Noncontributory. SOCIAL HISTORY: She lives at [facility]. She is not a smoker. ALLERGIES: Cipro and sulfa. REVIEW OF SYSTEMS: Her son reports that she has had confusion with multiple antibiotics in the past. I am unable to obtain a complete review of systems due to patient confusion. She does endorse pain in her right hip and her neck, but did not answer questions about dyspnea and is otherwise agitated and not able to complete this. PHYSICAL EXAMINATION: VITAL SIGNS: Blood pressure currently 94/69 but it has mostly been between th e 130s and 150s, heart rate 73, respiration 16, 96% on 3 L nasal cannula, temp is 36.7 Celsius. GENE RAL: On exam, very agitated and confused, elderly female who appears distressed. She is trying to c limb out of bed. HEENT: Head is atraumatic. No alopecia. Eyes without scleral icterus. Pupils eq ual and round. Oral mucosa is dry. NECK: She is moving, but I did not see jugular venous distentio n. HEART: Regular rate and rhythm without murmurs, gallops, or rubs. LUNGS: With left basilar ins piratory wheezes and squeaks as well as coarse crackles. Otherwise clear to auscultation bilaterally . ABDOMEN: Obese, soft, nontender without any rebound, guarding, or peritoneal signs. LOWER EXTREM ITIES: Feet are warm. Posterior tib pulses 1+ bilaterally. No pitting edema. SKIN: No apparent r ashes. MUSCULOSKELETAL: No gross joint swelling or deformities. NEUROLOGICAL: As above. She appe ars to be moving all extremities well. No gross focal deficits noted. LABORATORY DATA: Her sodium is 142, potassium 3.8, CO2 17, BUN 48, creatinine 2.1, calcium 8.3. Whi te count 8.8, hemoglobin 11.3, platelets 298. Urinalysis notable for 2+ protein, 5-10 white cells. CURRENT MEDICATIONS: Normal saline at 100 cc/hour, vitamin C, amlodipine 10 mg, cefepime 2 g IV zechariah y, ergocalciferol 50,000 units probably weekly, ferrous sulfate, Prozac 30 mg, Flonase, Mucinex, hydr alazine 100 mg three times daily, Lantus 16 units, lispro, Synthroid, metoprolol 25 mg twice daily, L yrica 25 mg twice daily, sodium bicarbonate 650 mg twice daily, vitamin B12 1000 mcg daily. CHEST X-RAY: I reviewed this personally and it showed a right upper lobe infiltrate and cardiomegaly . No pleural effusions. Hilar vessels appear slightly engorged. IMPRESSION AND PLAN: 1. Stage 4 chronic kidney disease. She reportedly has a history of lupus, but this has not been act zoe. She primarily is thought to have diabetic and hypertensive nephropathy as well as prior kidney injury. I am not sure if she has had paraprotein studies, but her creatinine is at its baseline. I will not order these now. Avoid NSAIDs and IV contrast dye. Renally dose antibiotics. Her cefepime is appropriately dosed for her renal function. See below. 2. Pneumonia. She has not responded to antibiotics. She may just need broadened coverage. She fuchs s not have a fever or leukocytosis. It is possible a component of this is heart failure. I would st op her IV fluids. I would consider reducing the dose of cefepime from 2 to 1 g daily given her confu kahlil, although I think this is an unlikely cause. 3. Altered mental status. She is delirious. The most likely etiology is her pneumonia. It is poss ible I suppose that she has a rare reaction to cefepime and has become confused from this, although I think unlikely. See above. Further evaluation per primary service. 4. Hypertension. Her blood pressure has been labile. She has been poorly controlled in the past. I would continue with her metoprolol and hydralazine at outpatient doses for the time being. If her blood pressure remains low, then obviously we will need to stop these. 5. History of recurrent UTIs. Her urinalysis appears rather bland and is not supportive of active i nfection. Thank you for this interesting consultation. ADDENDUM: I have spoken now with Joelle's son. He states she has had confusion with various anti biotics in the past. I spoke with Dr. Lafleur. She has treated her urine infections with Augmentin. T here are rare case reports of cefepime causing confusion. I think it would be reasonable to switch t o Zosyn. I will discuss this with the primary team. /[id number]/MODL
[2017-11-14] MEDS: traMADol 50 MG TAB PO PRN ×2 (17:23→23:28)
[2017-11-14] MEDS: PIPERACILLIN/TAZO 3.375 GM/DEX 50 ML IV SCH ×2 (17:28→23:28)
[2017-11-14] MEDS: INSULIN GLARGINE 100 UNITS/ML UNIT SC SCH (21:30)
[2017-11-14] MEDS ORDERED: OLANZapine 2.5 MG TAB PO ONE (22:51)
[2017-11-14] MEDS: MELATONIN 3 MG TAB PO PRN (23:11)
[2017-11-15 05:19] LABS: PLATELET COUNT 342 10^3/uL (150-400)
[2017-11-15] MEDS: IPRATROPIUM/ALBUTEROL 3 ML DEYVIAL IH SCH ×4 (05:29→22:32)
[2017-11-15] MEDS: LEVOTHYROXINE 75 MCG TAB PO SCH (05:35)
[2017-11-15] MEDS: PIPERACILLIN/TAZO 3.375 GM/DEX 50 ML IV SCH ×4 (05:35→23:00)
[2017-11-15] MEDS: INSULIN LISPRO 100 UNIT/ML SC SCH ×3 (08:32→18:18)
[2017-11-15] MEDS: DOCUSATE SODIUM 100 MG CAP PO SCH ×2 (09:07→22:29)
[2017-11-15] MEDS: SENNOSIDES 1 TAB PO SCH ×2 (09:07→22:23)
[2017-11-15] MEDS: PREGABALIN 25 MG CAP PO SCH ×2 (09:07→22:22)
[2017-11-15] MEDS: ASCORBIC ACID 500 MG TAB PO SCH ×2 (09:09→22:22)
[2017-11-15] MEDS: guaiFENesin 600 MG TAB.ER PO SCH ×2 (09:09→22:22)
[2017-11-15] MEDS: FLUoxetine 10 MG CAP PO SCH (09:09)
[2017-11-15] MEDS: CYANO/VITAMIN B12 1000 MCG TAB PO SCH (09:09)
[2017-11-15] MEDS: METOPROLOL TARTRATE 25 MG TAB PO SCH ×2 (09:10→22:25)
[2017-11-15] MEDS: FLUoxetine 20 MG CAP PO SCH (09:10)
[2017-11-15] MEDS: SODIUM BICARBONATE 650 MG TAB PO SCH (09:10)
[2017-11-15] MEDS: FERROUS SULFATE 325 MG TAB PO SCH ×2 (09:11→22:21)
[2017-11-15] MEDS: PANTOPRAZOLE SODIUM 40 MG TAB PO SCH (09:12)
[2017-11-15] MEDS: FLUTICASONE NASAL 120 SPRAYS/16 GM MDI EACHNARE SCH ×2 (09:13→22:28)
[2017-11-15] MEDS: FOLIC ACID PO SCH (09:13)
[2017-11-15] MEDS: VITAMIN B COMPLEX PO SCH (09:13)
--- NOTE | 2017-11-15 11:26 | SOAPPROG ---
SOAP Progress Note Assessment/Plan: Assessment: 1. CKD IV. Creat stable at recent b/l of ~2.1-2.4. 2. PNA. Abx switched to zosyn. WBC up slightly but afebrile. Continue zosyn. 3. Altered mentation. Seems to be improving. Cefepime unlikely cause but switched to zosyn. Continue prn seroquel, abx for pna. 4. HTN. BP running high today, likely at least in part due to agitation. Continue home meds for now. Plan: 11/15/17 11:23 11/15/17 11:24 11/15/17 11:26 Subjective: Less confused and agitated this am. Slept little d/t incontinence of urine and stool all night. Objective: Vital Signs Temp Pulse Resp BP Pulse Ox 36.7 C 91 18 161/115 H 90 L 11/15/17 07:46 11/15/17 09:10 11/15/17 07:46 11/15/17 09:10 11/15/17 07:46 Laboratory Results 11/15/17 04:31 11/15/17 04:31 11/14/17 11/15/17 11/16/17 05:59 05:59 05:59 Intake Total 626 Output Total 600 Balance 26 PT 14.8 SEC (12.0-15.0) 11/12/17 20:38 INR 1.14 (0.83-1.16) 11/12/17 20:38 Elderly female, less distressed than yesterday; Seems to answers questions appropriately. Asking to get into chair RRR, no m/g/r CTAB Abdom soft, nontender No edema ICD10 Worksheet Patient Problems: Problems Problem Status Onset Pneumonia Acute Upper GI bleed Acute Sepsis Acute
[2017-11-15] MEDS: ACETAMINOPHEN 325 MG TAB PO PRN ×2 (13:03→22:54)
--- NOTE | 2017-11-15 13:27 | HOSPPROG ---
Hospitalist Progress Note Assessment/Plan: 82 yo F w/ CHF, HTN, DM, AF, and CKD presents with pneumonia and associated hypoxia. D/W Dr Wesley at bedside. Plan: 1. Pneumonia - -productive cough, hypoxia, and RUL infiltrate on CXR. -Patient received azithromycin, levofloxacin, and CTX and [place] with minimal improvement. -No evidence of sepsis physiology on admission. -Procalcitonin elevated at 0.7 and lactic acid WNL. -Was on Cefepime (renal dosing) will change to Zosyn, possible acute confusion -potential the abx causing increased confusion? -Blood cultures, respiratory PCR negative 2. AHRF - -Likely 2/2 above. She does not require O2 at baseline; currently on 2-3 L/min O2 via NC. -PNA management as above -Incentive spirometry, wean O2 as able 3. Normocytic anemia - -Hgb 8.6 on admission, unclear chronicity noting no prior values for comparison. -Patient does note dark stools for at least a month but she is also on oral iron , which may be contributing. -She is hemodynamically stable and not tachycardic; she denies prior hx of significant GIB. -Transfused 2u pRBC by ED -heme stool -Monitor CBC -Transfuse for Hgb<7 -Hgb stable likely appropriate for outpatient colonoscopy 4. IDDM - -Uses insulin glargine 16u qHS + SSI as outpatient, will continue here. 5. HTN - -Continue home meds, med reconciled. -partially related to agitation 6. Hypothyroid - -On LTX. 7. Rash -on back -pt says intermittent -itches -follow, no specific pattern identified 8. CRF -d/w Dr Wesley -appreciate consult 9.Acute on chronic confusion -cont supportive care -unclear etiol Diet - Regular Code - Full Ppx - SCDs noting possible melena Dispo needs further treatment and evaluation in hospital [place] [facility] [place] Subjective: C/O pain all over. Not sleeping. Confused. Objective: Vital Signs Temp Pulse Resp BP Pulse Ox 36.8 C 68 14 166/72 H 91 L 11/15/17 11:29 11/15/17 11:29 11/15/17 11:29 11/15/17 11:29 11/15/17 11:29 Laboratory Results 11/15/17 04:31 11/15/17 04:31 11/14/17 11/15/17 11/16/17 05:59 05:59 05:59 Intake Total 626 Output Total 600 Balance 26 PT 14.8 SEC (12.0-15.0) 11/12/17 20:38 INR 1.14 (0.83-1.16) 11/12/17 20:38 - Physical Exam Constitutional: appears nourished, chronically ill appearing, uncomfortable Eyes: PERRL, anicteric sclera, EOMI Ears, Nose, Mouth, Throat: moist mucous membranes, hearing normal, ears appear normal Cardiovascular: No JVD, No tachycardia, No edema Respiratory: no respiratory distress, no rales or rhonchi, reduced air movement Gastrointestinal: normoactive bowel sounds, No tenderness, No ascites Skin: warm, normal color, No mottled Musculoskeletal: pain with ROM, muscular tenderness, generalized weakness Neurologic: No AAOx3 Psychiatric: not anxious, encephalopathic, poor insight, poor judgement, poor memory, No thought process linear ICD10 Worksheet Patient Problems: Problems Problem Status Onset Pneumonia Acute Upper GI bleed Acute Sepsis Acute
--- NOTE | 2017-11-15 17:13 | ASMTCMCOM ---
CM Note CM Note Notes: Pt still not ready for DC, but plan remains the same, pt will dc back to where pt lives in their LTC. Updated notes faxed. DC Plan: [facility] Date Signed: 11/15/2017 05:13 PM Electronically Signed By:Debora Ware RN
[2017-11-15] MEDS: INSULIN GLARGINE 100 UNITS/ML UNIT SC SCH (22:20)
[2017-11-16] MEDS: OLANZapine 2.5 MG TAB PO PRN ×2 (00:05→23:10)
[2017-11-16] MEDS: traMADol 50 MG TAB PO PRN ×3 (00:05→23:10)
[2017-11-16] MEDS: PIPERACILLIN/TAZO 3.375 GM/DEX 50 ML IV SCH ×5 (05:10→23:10)
[2017-11-16] MEDS: LEVOTHYROXINE 75 MCG TAB PO SCH (05:10)
[2017-11-16 05:49] LABS: PLATELET COUNT 339 10^3/uL (150-400)
[2017-11-16] MEDS: IPRATROPIUM/ALBUTEROL 3 ML DEYVIAL IH SCH ×4 (05:59→22:06)
--- NOTE | 2017-11-16 09:47 | HOSPPROG ---
Hospitalist Progress Note Assessment/Plan: 82 yo F w/ CHF, HTN, DM, AF, and CKD presents with pneumonia and associated hypoxia. Plan: 1. Pneumonia - productive cough, hypoxia, and RUL infiltrate on CXR. treat as HCAP w sinan rosales 2. AHRF - 2/2 pneumonia 3. Normocytic anemia - likely 2.2 ckd no e/o blood loss 4. IDDM - Uses insulin glargine 16u qHS + SSI as outpatient, will continue here. 5. HTN - continue meds agitation related 6. Hypothyroid - On LTX. 7. Rash follow 8. CRF cr near baseline 9.Acute on chronic confusion has sitter Diet - Regular Code - Full Ppx - SCDs noting possible melena Dispo needs further treatment and evaluation in hospital Subjective: case d/w dr dao. cxr w RUL infiltrate (interp by me) Objective: Vital Signs Temp Pulse Resp BP Pulse Ox 36.9 C 61 14 166/65 H 90 L 11/16/17 06:59 11/16/17 09:07 11/16/17 09:07 11/16/17 06:59 11/16/17 09:07 Laboratory Results 11/16/17 05:12 11/16/17 05:12 11/15/17 11/16/17 11/17/17 05:59 05:59 05:59 Intake Total 50 Output Total 8 Balance 42 PT 14.8 SEC (12.0-15.0) 11/12/17 20:38 INR 1.14 (0.83-1.16) 11/12/17 20:38 - Physical Exam Constitutional: no apparent distress, appears nourished, other (answers questions; flat affect) Eyes: PERRL, anicteric sclera Ears, Nose, Mouth, Throat: moist mucous membranes, hearing normal Cardiovascular: regular rate and rhythym, no murmur, rub, or gallop Respiratory: no respiratory distress, no rales or rhonchi Gastrointestinal: normoactive bowel sounds, soft, non-tender abdomen Genitourinary: no bladder fullness, No carr in urethra Skin: warm, normal color Musculoskeletal: full muscle strength Neurologic: No AAOx3 ICD10 Worksheet Patient Problems: Problems Problem Status Onset Pneumonia Acute Sepsis Acute Upper GI bleed Acute
[2017-11-16] MEDS: INSULIN LISPRO 100 UNIT/ML SC SCH ×3 (10:23→19:16)
[2017-11-16] MEDS: FLUoxetine 10 MG CAP PO SCH ×2 (10:24→10:27)
[2017-11-16] MEDS: FLUoxetine 20 MG CAP PO SCH (10:24)
[2017-11-16] MEDS: CYANO/VITAMIN B12 1000 MCG TAB PO SCH (10:25)
[2017-11-16] MEDS: PREGABALIN 25 MG CAP PO SCH ×2 (10:25→20:37)
[2017-11-16] MEDS: ASCORBIC ACID 500 MG TAB PO SCH ×2 (10:26→20:35)
[2017-11-16] MEDS: SODIUM BICARBONATE 650 MG TAB PO SCH ×2 (10:27→20:37)
[2017-11-16] MEDS: DOCUSATE SODIUM 100 MG CAP PO SCH ×2 (10:27→20:46)
[2017-11-16] MEDS: FERROUS SULFATE 325 MG TAB PO SCH ×2 (10:27→20:35)
[2017-11-16] MEDS: guaiFENesin 600 MG TAB.ER PO SCH ×2 (10:27→20:35)
[2017-11-16] MEDS: PANTOPRAZOLE SODIUM 40 MG TAB PO SCH (10:27)
[2017-11-16] MEDS: METOPROLOL TARTRATE 25 MG TAB PO SCH ×2 (10:28→20:36)
[2017-11-16] MEDS: FLUTICASONE NASAL 120 SPRAYS/16 GM MDI EACHNARE SCH ×2 (10:29→20:46)
[2017-11-16] MEDS: SENNOSIDES 1 TAB PO SCH ×2 (10:32→20:46)
[2017-11-16] MEDS: VITAMIN B COMPLEX PO SCH (10:33)
[2017-11-16] MEDS: FOLIC ACID PO SCH (10:33)
[2017-11-16] MEDS: ACETAMINOPHEN 325 MG TAB PO PRN ×2 (11:40→20:35)
--- NOTE | 2017-11-16 14:42 | SOAPPROG ---
SOAP Progress Note Assessment/Plan: Assessment: 1. CKD IV. Creat stable at recent b/l of ~2.1-2.4. 2. Hypernatremia. Appears dry. Start d51/4 ns maintenance ivf. 3. PNA. Abx switched to zosyn. WBC down, afebrile. Continue zosyn. 4. HTN. BP running high today, likely at least in part due to agitation. Continue home meds for now. 5. Altered mentation. Seems to be improving. Cefepime unlikely cause but switched to zosyn. Continue prn seroquel, abx for pna. Plan: 11/15/17 11:23 11/15/17 11:24 11/15/17 11:26 11/16/17 14:41 11/16/17 14:42 11/16/17 14:42 Subjective: Wants to eat. Mouth feels dry. per RN has bad decubitus ulcers. Objective: Vital Signs Temp Pulse Resp BP Pulse Ox 36.6 C 60 16 127/63 H 90 L 11/16/17 12:00 11/16/17 12:00 11/16/17 12:00 11/16/17 12:00 11/16/17 12:00 Laboratory Results 11/16/17 05:12 11/16/17 05:12 11/15/17 11/16/17 11/17/17 05:59 05:59 05:59 Intake Total 50 Output Total 8 Balance 42 PT 14.8 SEC (12.0-15.0) 11/12/17 20:38 INR 1.14 (0.83-1.16) 11/12/17 20:38 Less confused. Awake, uncomfortable, NAD. Less agitated today RRR, no m/g/r; no jvd CTAB Abdom soft, nontender No edema +skin tenting Oral mucosa dry ICD10 Worksheet Patient Problems: Problems Problem Status Onset Pneumonia Acute Sepsis Acute Upper GI bleed Acute
[2017-11-16] MEDS ORDERED: D5W 1/4 NS 1,000 ML IV SCH (14:45)
[2017-11-16] MEDS ORDERED: LIDOCAINE 2% JELLY 5 ML TUBE TP PRN (16:26)
[2017-11-16] MEDS ORDERED: PHENYLEPHRINE HCL 1 SUPP PR PRN (16:27)
[2017-11-16] MEDS ORDERED: ALTEPLASE 2 MG VIAL IVP PRN (19:01)
[2017-11-16] MEDS: INSULIN GLARGINE 100 UNITS/ML UNIT SC SCH (20:35)
[2017-11-16] MEDS: PREPARATION H 51 GM CRTUBE PR SCH ×2 (20:49)
[2017-11-17] MEDS: PIPERACILLIN/TAZO 3.375 GM/DEX 50 ML IV SCH ×4 (05:37→23:55)
[2017-11-17] MEDS: LEVOTHYROXINE 75 MCG TAB PO SCH (05:38)
[2017-11-17 05:59] LABS: PLATELET COUNT 351 10^3/uL (150-400)
[2017-11-17] MEDS: IPRATROPIUM/ALBUTEROL 3 ML DEYVIAL IH SCH ×5 (06:13→22:49)
--- NOTE | 2017-11-17 07:41 | WOCRNPDOC ---
WOCRN Advanced Assessment Note - Skin Integrity Problem, Advanced Assess Bilateral Buttock Dressing Type: Open to Air (barrier cream) Exudate Amount: None Exudate Characteristic(s): None Integumentary Issue Intervention: Barrier Cream Applied (Nursing applied) Leydi Wound Tissue: Blanching, Raw, Denuded Leydi Wound Swelling: None Wound Bed Color: Red Wound Bed Constitution: Red/[place] - Non Granular Tissue Wound Edges: Epithelizing Site Odor: None Site Measurement - Head-to-Toe Length X Width X Depth (cm): 0.8cmx0.8cmx0.1cm Pressure Injury Stage: Stage 2 Skin Integrity Problem Comment: Bilateral buttocks w/ raw, denuded skin, appearance consistent w/ IAD. There is a small, friable lesion on patient's L butttock, a stage 2 pressure injury; etiology looks more like friction r/t repositioning than pressure. New order for MAD cream for IAD. Continue w/ turns q2.
[2017-11-17] MEDS ORDERED: ERGOCALCIFEROL 50,000 I.UNIT CAP PO SCH (10:54)
[2017-11-17] MEDS: PREPARATION H 51 GM CRTUBE PR SCH ×2 (11:13→20:09)
[2017-11-17] MEDS: INSULIN LISPRO 100 UNIT/ML SC SCH ×3 (11:14→17:54)
[2017-11-17] MEDS: traMADol 50 MG TAB PO PRN ×2 (11:19→22:15)
[2017-11-17] MEDS: ASCORBIC ACID 500 MG TAB PO SCH ×2 (11:21→20:06)
[2017-11-17] MEDS: DOCUSATE SODIUM 100 MG CAP PO SCH ×2 (11:22→19:36)
[2017-11-17] MEDS: CYANO/VITAMIN B12 1000 MCG TAB PO SCH (11:22)
[2017-11-17] MEDS: guaiFENesin 600 MG TAB.ER PO SCH ×2 (11:23→20:07)
[2017-11-17] MEDS: FERROUS SULFATE 325 MG TAB PO SCH ×2 (11:23→20:07)
[2017-11-17] MEDS: FLUoxetine 20 MG CAP PO SCH (11:23)
[2017-11-17] MEDS: FLUTICASONE NASAL 120 SPRAYS/16 GM MDI EACHNARE SCH ×2 (11:23→20:08)
[2017-11-17] MEDS: METOPROLOL TARTRATE 25 MG TAB PO SCH ×2 (11:24→19:36)
[2017-11-17] MEDS: PANTOPRAZOLE SODIUM 40 MG TAB PO SCH (11:25)
[2017-11-17] MEDS: PREGABALIN 25 MG CAP PO SCH ×2 (11:25→20:07)
[2017-11-17] MEDS: VITAMIN B COMPLEX PO SCH (11:26)
[2017-11-17] MEDS: FOLIC ACID PO SCH (11:26)
[2017-11-17] MEDS: SENNOSIDES 1 TAB PO SCH ×2 (11:26→19:38)
[2017-11-17] MEDS: SODIUM BICARBONATE 650 MG TAB PO SCH ×2 (11:26→20:06)
[2017-11-17] MEDS: ACETAMINOPHEN 325 MG TAB PO PRN (14:34)
[2017-11-17] MEDS ORDERED: IBUPROFEN 200 MG TAB PO ONE (14:50)
--- NOTE | 2017-11-17 14:53 | HOSPPROG ---
Hospitalist Progress Note Assessment/Plan: 82 yo F w/ CHF, HTN, DM, AF, and CKD presents with pneumonia and associated hypoxia. Plan: 1. Pneumonia - productive cough, hypoxia, and RUL infiltrate on CXR. treat as HCAP w zosyn, day 4/ [employer] bobby 2. AHRF - 2/2 pneumonia ANAL PAIN: continue topical meds carr: remove in AM, 11/18 3. Normocytic anemia - likely 2.2 ckd no e/o blood loss 4. IDDM - Uses insulin glargine 16u qHS + SSI as outpatient, will continue here. 5. HTN - continue meds agitation related 6. Hypothyroid - On LTX. 7. Rash follow 8. CRF cr near baseline 9.Acute on chronic confusion better today (11/18) Diet - Regular Code - Full Ppx - SCDs noting possible melena Dispo needs further treatment and evaluation in hospital Subjective: c/o anal pain. case d/w dr dao Objective: Vital Signs Temp Pulse Resp BP Pulse Ox 37.0 C 90 18 152/82 H 93 11/17/17 10:39 11/17/17 11:24 11/17/17 10:39 11/17/17 11:24 11/17/17 10:39 Laboratory Results 11/17/17 05:50 11/17/17 05:50 11/16/17 11/17/17 11/18/17 05:59 05:59 05:59 Intake Total 50 690 Output Total 8 1245 Balance 42 -555 PT 14.8 SEC (12.0-15.0) 11/12/17 20:38 INR 1.14 (0.83-1.16) 11/12/17 20:38 - Physical Exam Constitutional: no apparent distress, appears nourished Eyes: PERRL, anicteric sclera Ears, Nose, Mouth, Throat: moist mucous membranes, hearing normal Cardiovascular: regular rate and rhythym, no murmur, rub, or gallop Respiratory: no respiratory distress, no rales or rhonchi Gastrointestinal: normoactive bowel sounds, soft, non-tender abdomen Genitourinary: no bladder fullness, No carr in urethra Skin: warm, normal color Musculoskeletal: full muscle strength Neurologic: AAOx3 ICD10 Worksheet Patient Problems: Problems Problem Status Onset Pneumonia Acute Sepsis Acute Upper GI bleed Acute
--- NOTE | 2017-11-17 15:08 | SOAPPROG ---
SOAP Progress Note Assessment/Plan: Assessment: 1. CKD IV. Creat improved to 2.1. Recent b/l of ~2.1-2.4. 2. Hypernatremia. Appears dry. Na down to 145. Continue d51/4 ns at 75cc/h. 3. PNA. Abx switched to zosyn. WBC nl, more alert, afebrile. Continue zosyn. 4. HTN. BP high but improving. Continue home meds for now. 5. Altered mentation. Markedly improved. Continue prn seroquel, abx for pna. Plan: 11/15/17 11:23 11/15/17 11:24 11/15/17 11:26 11/16/17 14:41 11/16/17 14:42 11/16/17 14:42 11/17/17 15:06 11/17/17 15:06 11/17/17 15:07 Subjective: She is alert this morning. C/o wanting to move more and get out of bed. Objective: Vital Signs Temp Pulse Resp BP Pulse Ox 37.0 C 90 18 152/82 H 93 11/17/17 10:39 11/17/17 11:24 11/17/17 10:39 11/17/17 11:24 11/17/17 10:39 Laboratory Results 11/17/17 05:50 11/17/17 05:50 11/16/17 11/17/17 11/18/17 05:59 05:59 05:59 Intake Total 50 690 Output Total 8 1245 Balance 42 -555 PT 14.8 SEC (12.0-15.0) 11/12/17 20:38 INR 1.14 (0.83-1.16) 11/12/17 20:38 Alert, upright, in bed, NAD RRR, no m/g/r CTAB Abdom soft, nontender, nondistended No edema +skin tenting on hands ICD10 Worksheet Patient Problems: Problems Problem Status Onset Pneumonia Acute Upper GI bleed Acute Sepsis Acute
[2017-11-17] MEDS: MELATONIN 3 MG TAB PO PRN (22:15)
[2017-11-17] MEDS: INSULIN GLARGINE 100 UNITS/ML UNIT SC SCH (22:20)
[2017-11-18] MEDS: ACETAMINOPHEN 325 MG TAB PO PRN (03:36)
[2017-11-18] MEDS: PIPERACILLIN/TAZO 3.375 GM/DEX 50 ML IV SCH ×2 (05:55→11:31)
[2017-11-18] MEDS: LEVOTHYROXINE 75 MCG TAB PO SCH (05:55)
[2017-11-18] MEDS: IPRATROPIUM/ALBUTEROL 3 ML DEYVIAL IH SCH ×3 (06:04→16:10)
[2017-11-18] MEDS: INSULIN LISPRO 100 UNIT/ML SC SCH ×2 (08:35→12:30)
[2017-11-18] MEDS: ASCORBIC ACID 500 MG TAB PO SCH (08:38)
[2017-11-18] MEDS: CYANO/VITAMIN B12 1000 MCG TAB PO SCH (08:38)
[2017-11-18] MEDS: FERROUS SULFATE 325 MG TAB PO SCH (08:39)
[2017-11-18] MEDS: FLUoxetine 10 MG CAP PO SCH (08:40)
[2017-11-18] MEDS: FLUoxetine 20 MG CAP PO SCH (08:41)
[2017-11-18] MEDS: guaiFENesin 600 MG TAB.ER PO SCH (08:42)
[2017-11-18] MEDS: FLUTICASONE NASAL 120 SPRAYS/16 GM MDI EACHNARE SCH (08:42)
[2017-11-18] MEDS: METOPROLOL TARTRATE 25 MG TAB PO SCH (08:43)
[2017-11-18] MEDS: PANTOPRAZOLE SODIUM 40 MG TAB PO SCH (08:44)
[2017-11-18] MEDS: PREGABALIN 25 MG CAP PO SCH (08:44)
[2017-11-18] MEDS: SODIUM BICARBONATE 650 MG TAB PO SCH (08:45)
[2017-11-18] MEDS: VITAMIN B COMPLEX PO SCH (08:46)
[2017-11-18] MEDS: FOLIC ACID PO SCH (08:46)
[2017-11-18] MEDS: PREPARATION H 51 GM CRTUBE PR SCH (08:47)
[2017-11-18] MEDS ORDERED: POTASSIUM CL 20 MEQ/15 ML UDCUP PO ONE (08:50)
--- NOTE | 2017-11-18 09:21 | SOAPPROG ---
SOAP Progress Note Assessment/Plan: Assessment: 1. CKD IV. Creat improved to 2.0 with IVF. Recent b/l of ~2.1-2.4. 2. Hypernatremia. Appears dry. Na down to 141. Looks like able to take po now. Can d/c ivf. 3. PNA. Abx switched to zosyn. WBC nl, more alert, afebrile. Complete course of abx. 4. HTN. BP high but improving. Continue home meds for now. 5. Altered mentation. Markedly improved. Continue prn seroquel, abx for pna. 6. Dispo. Possible d/c today. Plan: 11/15/17 11:23 11/15/17 11:24 11/15/17 11:26 11/16/17 14:41 11/16/17 14:42 11/16/17 14:42 11/17/17 15:06 11/17/17 15:06 11/17/17 15:07 11/18/17 09:21 Subjective: Feels better today. Having hard time with liquid potassium. Objective: Vital Signs Temp Pulse Resp BP Pulse Ox 36.9 C 68 16 149/80 H 94 11/18/17 07:12 11/18/17 08:43 11/18/17 07:12 11/18/17 08:43 11/18/17 07:12 Laboratory Results 11/17/17 05:50 11/18/17 06:05 11/17/17 11/18/17 11/19/17 05:59 05:59 05:59 Intake Total 690 700 Output Total 1245 1350 Balance -555 -650 PT 14.8 SEC (12.0-15.0) 11/12/17 20:38 INR 1.14 (0.83-1.16) 11/12/17 20:38 Upright in bed. Much more alert and bright today. RRR, no m/g/r CTAB Abdom soft, nontender, no r/g No LE pitting edema ICD10 Worksheet Patient Problems: Problems Problem Status Onset Pneumonia Acute Upper GI bleed Acute Sepsis Acute
[2017-11-18] MEDS: POLYETHYLENE GLYCOL 3350 17 GM PKT PO SCH (10:24)
[2017-11-18] MEDS: DOCUSATE SODIUM 100 MG CAP PO SCH (10:24)
[2017-11-18] MEDS: SENNOSIDES 1 TAB PO SCH (10:24)
[2017-11-18 11:09] VITALS: PULSE 62; RESP 32; TEMP 97.9; O2SAT 97
[2017-11-18] MEDS: traMADol 50 MG TAB PO PRN (11:22)
[2017-11-18] MEDS ORDERED: traMADol 50 MG TAB PO ONE (12:00)
--- NOTE | 2017-11-18 13:53 | HOSPPROG ---
Hospitalist Progress Note Assessment/Plan: 82 yo F w/ CHF, HTN, DM, AF, and CKD presents with pneumonia and associated hypoxia. Plan: 1. Pneumonia - productive cough, hypoxia, and RUL infiltrate on CXR. treat as HCAP w mikaelasyn, day 4/ BARRIE rosales 2. AHRF - 2/2 pneumonia ANAL PAIN: continue topical meds carr: remove in AM, 11/18 3. Normocytic anemia - likely 2.2 ckd no e/o blood loss 4. IDDM - Uses insulin glargine 16u qHS + SSI as outpatient, will continue here. 5. HTN - continue meds agitation related 6. Hypothyroid - On LTX. 7. Rash follow 8. CRF cr near baseline 9.Acute on chronic confusion better today (11/18) Diet - Regular Code - Full Ppx - SCDs noting possible melena return to snf today > 30 minus on dc Subjective: anus examined by surgery- notable for skin breakdown but no hemorrhoids Objective: Vital Signs Temp Pulse Resp BP Pulse Ox 36.6 C 62 32 H 161/62 H 97 11/18/17 11:08 11/18/17 11:08 11/18/17 11:08 11/18/17 11:08 11/18/17 11:08 Laboratory Results 11/17/17 05:50 11/18/17 06:05 11/17/17 11/18/17 11/19/17 05:59 05:59 05:59 Intake Total 690 700 Output Total 1245 1350 Balance -555 -650 PT 14.8 SEC (12.0-15.0) 11/12/17 20:38 INR 1.14 (0.83-1.16) 11/12/17 20:38 - Physical Exam Constitutional: no apparent distress, appears nourished, other (more alert) Eyes: PERRL, anicteric sclera Ears, Nose, Mouth, Throat: moist mucous membranes, hearing normal Cardiovascular: regular rate and rhythym, no murmur, rub, or gallop Respiratory: no respiratory distress, no rales or rhonchi Gastrointestinal: soft, non-tender abdomen Genitourinary: no bladder fullness, carr in urethra Skin: warm, normal color, no induration Musculoskeletal: full muscle strength, no muscle tenderness ICD10 Worksheet Patient Problems: Problems Problem Status Onset Pneumonia Acute Sepsis Acute Upper GI bleed Acute
--- NOTE | 2017-11-18 13:57 | PDIAF ---
- Diagnosis Diagnosis: HCAP Code Status: Full Code - Medication Management Discharge Medications: Medications to Continue on Transfer Acetaminophen [Tylenol ES 500 mg (*)] 500 mg PO BID 11/12/17 [Last Taken Unknown ] Acetaminophen [Tylenol ES 500 mg (*)] 500 mg PO Q6 PRN 11/12/17 [Last Taken Unknown] Ascorbic Acid [Vitamin C 250 mg (*)] 250 mg PO BID 11/12/17 [Last Taken Unknown] Bisacodyl [Dulcolax] 10 mg RC DAILY PRN 11/12/17 [Last Taken Unknown] Calcium Carbonate [Tums 500MG (*)] 500 mg PO Q4 PRN 11/12/17 [Last Taken Unknown ] Cyanocobalamin [Vitamin B12 (*)] 1,000 mcg PO DAILY 11/12/17 [Last Taken Unknown ] Docusate Sodium [Colace] 200 mg PO BID 11/12/17 [Last Taken Unknown] Ergocalciferol (Vitamin D2) [Vitamin D2] 50,000 unit PO DODGE 11/12/17 [Last Taken Unknown] FLUoxetine [Prozac 10 MG (*)] 10 mg PO DAILY 11/12/17 [Last Taken Unknown] FLUoxetine [Prozac 20 MG (*)] 20 mg PO DAILY 11/12/17 [Last Taken Unknown] Ferrous Sulfate [Ferrous Sulf 325 MG (*)] 325 mg PO BID 11/12/17 [Last Taken Unknown] Fluticasone Nasal [Flonase Nasal [place]] 1 sprays NASAL BID 11/12/17 [Last Taken Unknown] Herbals/Supplements -Info Only 1 ea PO DAILY 11/12/17 [Last Taken Unknown] Hydralazine HCl 100 mg PO TID 11/12/17 [Last Taken Unknown] Hydrocortisone 1% [Hydrocortisone 1% cream (*)] 1 lizabeth TP Q4 PRN 11/12/17 [Last Taken Unknown] Insulin Glargine [Lantus 100 UNITS/ML (*)] 16 units SC HS 11/12/17 [Last Taken Unknown] Insulin Regular Human [Humulin R 100 units/ml (*)] 6 unit SC HS PRN 11/12/17 [ Last Taken Unknown] Ipratropium/Albuterol [Duoneb (*)] 3 ml IH QID 11/12/17 [Last Taken Unknown] Levothyroxine [Synthroid 75 mcg (*)] 75 mcg PO DAILY06 11/12/17 [Last Taken Unknown] Lidocaine 5% [Lidocaine 5% Oint] 1 lizabeth TP TID PRN 11/12/17 [Last Taken Unknown] Methenamine Ghulam [Hiprex 1 gm (*)] 0.5 gm PO BID 11/12/17 [Last Taken Unknown] Metoprolol Tartrate [Lopressor 25 mg (*)] 25 mg PO BID 11/12/17 [Last Taken Unknown] Nystatin Powder [Mycostatin Powder] 1 lizabeth TP Q8 PRN 11/12/17 [Last Taken Unknown ] Omeprazole 20 mg PO DAILY 11/12/17 [Last Taken Unknown] Ondansetron Odt [Zofran Odt 4 mg (*)] 4 mg PO Q8 PRN 11/12/17 [Last Taken Unknown] Polyethylene Glycol 3350 [Miralax 17 gm (*)] 17 gm PO DAILY PRN 11/12/17 [Last Taken Unknown] Polyethylene Glycol 3350 [Miralax 17 gm (*)] 17 gm PO MOTH@09 11/12/17 [Last Taken Unknown] Pregabalin [Lyrica] 25 mg PO BID 11/12/17 [Last Taken Unknown] Sennosides 8.6 mg PO BID 11/12/17 [Last Taken Unknown] Sennosides/Docusate Sodium [Senokot-S] 1 each PO DAILY PRN 11/12/17 [Last Taken Unknown] Simethicone [Gas Relief] 80 mg PO Q6 PRN 11/12/17 [Last Taken Unknown] Sodium Bicarbonate [Na Bicarb] 650 mg PO DAILY 11/12/17 [Last Taken Unknown] Vitamin B Complex/Folic Acid [B-Complex Tablet] 0.4 mg PO DAILY 11/12/17 [Last Taken Unknown] amLODIPine BESYLATE [Norvasc 10 mg (*)] 10 mg PO DAILY 11/12/17 [Last Taken Unknown] guaiFENesin [Mucinex 600 MG (*)] 600 mg PO BID 11/12/17 [Last Taken Unknown] guaiFENesin/DEXTROMETHORPHAN [Robitussin Dm Oral Liquid (*)] 10 ml PO Q6 PRN [Last Taken Unknown] levOFLOXACIN [levAQUIN (*)] 500 mg PO DAILY 11/12/17 [Last Taken Unknown] Lidocaine 2% Jelly [Lidocaine 2% Jelly (*)] 1 lizabeth TP Q2 PRN jelly 11/18/17 [ Last Taken Unknown] PE/Shark Liver/Gly/Pet,Wh [Preparation H Cream (*)] 1 lizabeth [place] BID crtube [Last Taken Unknown] Phenylephrine HCl [Preparation H Supp] 1 supp [place] TID PRN supp 11/18/17 [Last Taken Unknown] Discharge Medications: Refer to the Discharge Home Medication list for PRN reason. - Orders Services needed: Registered Nurse, Certified Director Of Academic Support, Physical Therapy, Occupational Therapy Isolation Type: None Diet Texture: Dysphagia 1 - Pureed, Thin Liquids, Meds Whole w/Liquids Wound Care Instructions: please have wound care nurse see daily re: skin breakdown around anus - Follow Up Care Current Providers and Referrals: JUJU TOMAS [Other] - As per Instructions
--- NOTE | 2017-11-18 14:21 | GDS ---
[f rep st] DISCHARGE SUMMARY DISCHARGE DIAGNOSES: 1. Nosocomial pneumonia status post 5 days of piperacillin. 2. Chronic kidney disease with baseline of 2. 3. Encephalopathy, now improved. 4. Hypertension. 5. Diabetes. 6. Skin breakdown around her anus secondary to sitting in stool. 7. Atrial fibrillation. 8. Likely diastolic heart failure. Please see admission history and physical by Dr. Yg Kelley. The patient presented with fa tigue, cough, sputum and chills. Chest x-ray demonstrated infiltrate. She was started on Zosyn. He r encephalopathy improved. Her oxygen requirement improved. She was on room air. She had some loca l wound care to her bottom given her skin breakdown. She continued to complain of pain. She was see n as a curbside by General Surgery, who felt she had skin breakdown, but no evidence of hemorrhoid or fissure. Local continued wound care is appropriate. She is discharged home on an unchanged medicat ion regimen. /[id number]/MODL
--- NOTE | 2017-11-18 14:53 | ASDISCHSUM ---
Discharge Information Plan Status:SNF Medically Cleared to Leave:11/18/2017 Discharge Date:11/18/2017 CM D/C Disposition:Intermediate Facility ADT D/C Disposition: Projected Discharge Date:11/18/2017 04:00 PM Transportation at D/C:Medicaid Transportation Discharge Delay Reason: Follow-Up Date:11/18/2017 04:00 PM Discharge Slot: Final Diagnosis: Placement Information Referral Type:*Snf/SNF Referral ID:[id number] Provider Name:[facility] Address 1:[address] Address 2: City:[place] Selection Factors: State:[place] Patient Contact Information Contact Name:GREG Relationship:Son Address:[address] City:[place] Alternate Phone: State/Zip Code:[place] [address] Email: Financial Information Financial Class:Medicare Advantage Plans Primary Plan Desc:[facility] [employer] Primary Plan Number:[id number] Secondary Plan Desc:[place] Secondary Plan Number:[id number] Assessment Information [facility] CM Progress Note CM Note CM Note Notes: Spoke w/Sonya at [facility], pt is a fpc care resident there, not [facility] as stated in H&P. Pt's son Noé states that his sister took care of her and her brother but his sister , so he moved them up here and her and her brother are now both at [facility]. DC Plan: LTC/ [facility] Date Signed: 11/13/2017 04:07 PM Electronically Signed By:Debora Ware RN [facility] CM Progress Note CM Note CM Note Notes: Pt still not ready for DC, but plan remains the same, pt will dc back to where pt lives in their LTC. Updated notes faxed. DC Plan: [facility] Date Signed: 11/15/2017 05:13 PM Electronically Signed By:Debora Ware RN Intervention Information Intervention Type:*CHRISTIANSON-Signed Date of Service:11/13/2017 10:47 AM Patient Type:Observation Staff Member:Lurdes Ball Hours: Discipline: Severity: Comment: Intervention Type:*IM-Signed Date of Service:11/18/2017 11:57 AM Patient Type:Inpatient Staff Member:Lurdes Ball Hours: Discipline: Severity: Comment:
--- NOTE | 2017-11-18 14:54 | ASMTCMCOM ---
CM Note CM Note Notes: Spoke with MD & RN. Dc order received. Alerted Sonya, at [facility]; paperwork faxed; confirmed received. Sonya arranging transport. LVM for pt's son; awaiting callback. No other needs at this time. Date Signed: 11/18/2017 02:54 PM Electronically Signed By:Maru Leal RN
[2017-11-18 16:21] VITALS: BP 172/94
== END 2017-11-18 17:00 | DRG 193 ==
LOC: EDUNIT# → F3E 23:00 → OBSVTOIN 11-13 14:04
PROVIDERS: ADMIT Student in an Organized Health Care Education/Training Program; ATTEND Student in an Organized Health Care Education/Training Program
PROC: 30233N1 Transfusion of Nonautologous Red Blood Cells into Peripheral Vein, Percutaneous Approach (ICD-10-PCS; 2017-11-12)
PROC: 02HV33Z Insertion of Infusion Device into Superior Vena Cava, Percutaneous Approach (ICD-10-PCS; principal; 2017-11-17)
DX: J18.8 Other pneumonia, unspecified organism (principal); G93.40 Encephalopathy, unspecified; I13.0 Hypertensive heart and chronic kidney disease with heart failure and stage 1 through stage 4 chronic kidney disease, or unspecified chronic kidney disease; I50.30 Unspecified diastolic (congestive) heart failure; N18.4 Chronic kidney disease, stage 4 (severe); E11.9 Type 2 diabetes mellitus without complications; I48.91 Unspecified atrial fibrillation; L89.312 Pressure ulcer of right buttock, stage 2; L89.322 Pressure ulcer of left buttock, stage 2; E03.9 Hypothyroidism, unspecified; D64.9 Anemia, unspecified
CPT/HCPCS: 92526-GN; 92610-GN; 96374; 97162-GP; 97530-GP; C1751; G0378; G8978-GP-CL; G8979-GP-CJ; G8996-GN-CK; G8997-GN-CI; J0692; J1630; J1815; J2405; J2543; J7613; P9016

== ENCOUNTER 2017-11-24 15:49 | Emergency (ER) | payer OTHER, MEDICAID ==
[2017-11-24 16:02] VITALS: RESP 16
[2017-11-24] MEDS ORDERED: NS 1,000 ML IV ONE (16:09)
--- NOTE | 2017-11-24 16:13 | EDPHY ---
HPI/HX/ROS/PE/MDM Narrative: CHIEF COMPLAINT: Abdominal pain HPI: The patient is an 82 y/o female with a history of stage 3 CKD and CHF arriving via EMS complaining of abdominal pain that is worse on the right side, onset today. On 11/22/17, 2 days ago, she was discharged from this hospital after having pneumonia. At that time she was negative for norovirus and C. Diff. She is not taking antibiotics s/p pneumonia, but still has a cough. Today she initially had difficulty urinating, but is now complaining of difficulty with having bowel movements, in addition to her abdominal pain. Per EMS and prison staff, she had 2 bowel movements today, but the patient states that these bowel movements are smaller than normal. Upon arrival to the emergency department she had a low grade fever of 37.5 degrees. No chest pain, headache, numbness, paresthesias. REVIEW OF SYSTEMS: Aside from elements discussed in the HPI, a comprehensive 10-point review of systems was reviewed and is negative. PMH: Dementia, CHF, hypertension, GERD, stage 3 chronic kidney disease, Type 2 Diabetes, pneumonia, depression SOCIAL HISTORY: Son at bedside, lives at [facility], retired, PHYSICAL EXAM: General: Patient is alert, in no acute distress. ENT: Eyes are normal to inspection. ENT inspection normal. Neck: Normal inspection. Full range of motion. Respiratory: Diminished breath sounds to left lower lobe. No respiratory distress. Cardiovascular: Regular rate and rhythm. Strong peripheral pulses. Normal cap refill. Abdomen: Moderate diffuse abdominal tenderness to palpation. There are no peritoneal signs. There are normal bowel sounds. Back: Normal to inspection. No tenderness to palpation. Skin: Normal color. No rash. Warm and dry. Extremities: Normal appearance. Full range of motion. Neuro: Oriented x3. Normal motor function. Normal sensory function. Portions of this note were transcribed by an ED scribe. I personally performed the history, physical exam, and medical decision making; and confirm the accuracy of the information in the transcribed note. ED Course: 1839: Patient's imaging do not reveal any acute processes. Patient's UA reveals a UTI; 1gm IV ceftriaxone ordered. 1845: Reassessed patient and discussed laboratory and imaging results. Patient' s son is concerned about giving the patient Ceftriaxone due to adverse reactions to this antibiotic in the past. 1856: Reassessed patient, I have prescribed her Augmentin instead of Ceftriaxone. I have offered her admission to this hospital which she has politely denied. Return precautions provided; patient and her son are comfortable with this plan. MDM: This patient presents with abdominal pain in setting of recent hospitalization for PNA. Her workup is somewhat limited by chronic renal insufficiency which limits ability to perform a contrast enhanced CTAP. Her workup reveals mild leukocytosis and evidence of a UTI. XR of abdomen is negative for signs of obstruction or free air. I had an extensive discussion with patient and son regarding plan - I offered her readmission to the hospital as well as antibiotics for UTI and further workup. They are comfortable with plan to return home with antibiotics for UTI. They understand I cannot rule out diseases such as diverticulitis without further testing. I am hesitant to put patient on additional empiric antibiotics as she recently completed a course of multiple strong antibiotics such as Zosyn. Patient will return to the ED for failure to improve or any worsening of condition. - Data Points Imaging Results: Imaging Impressions Chest X-Ray 11/24/17 16:09 Impression: 1. Interval improvement in previously-seen right upper lobe airspace disease since 11/14/2017. 2. Persistent cardiomegaly, without congestive heart failure. Abdomen X-Ray 11/24/17 16:15 Impression: No discrete pathology. Suboptimally visualized lung bases. Imaging: I viewed and interpreted images myself Laboratory Results: Laboratory Results 11/24/17 16:10 11/24/17 16:10 11/24/17 11/24/17 11/24/17 18:17 16:10 16:10 WBC 12.17 10^3/uL H 10^3/uL (3.80-9.50) RBC 3.82 10^6/uL L 10^6/uL (4.18-5.33) Hgb 11.3 g/dL L g/dL (12.6-16.3) Hct 34.4 % L % (38.0-47.0) MCV 90.1 fL fL (81.5-99.8) MCH 29.6 pg pg (27.9-34.1) MCHC 32.8 g/dL g/dL (32.4-36.7) RDW 15.1 % % (11.5-15.2) Plt Count 297 10^3/uL 10^3/uL (150-400) MPV 10.1 fL fL (8.7-11.7) Neut % (Auto) 83.5 % H % (39.3-74.2) Lymph % (Auto) 8.1 % L % (15.0-45.0) [place] % (Auto) 6.3 % % (4.5-13.0) Eos % (Auto) 1.3 % % (0.6-7.6) Baso % (Auto) 0.3 % % (0.3-1.7) Nucleat RBC Rel Count 0.0 % % (0.0-0.2) Absolute Neuts (auto) 10.15 10^3/uL H 10^3/uL (1.70-6.50) Absolute Lymphs (auto) 0.99 10^3/uL L 10^3/uL (1.00-3.00) Absolute Monos (auto) 0.77 10^3/uL 10^3/uL (0.30-0.80) Absolute Eos (auto) 0.16 10^3/uL 10^3/uL (0.03-0.40) Absolute Basos (auto) 0.04 10^3/uL 10^3/uL (0.02-0.10) Absolute Nucleated RBC 0.00 10^3/uL 10^3/uL (0-0.01) Immature Gran % 0.5 % % (0.0-1.1) Immature Gran # 0.06 10^3/uL 10^3/uL (0.00-0.10) Sodium 142 mEq/L mEq/L (135-145) Potassium 3.9 mEq/L mEq/L (3.5-5.2) Chloride 109 mEq/L mEq/L (97-110) Carbon Dioxide 23 mEq/l mEq/l (22-31) Anion Gap 10 mEq/L mEq/L (8-16) BUN 24 mg/dL H mg/dL (7-23) Creatinine 1.6 mg/dL H mg/dL (0.6-1.0) Estimated GFR 31 Glucose 88 mg/dL mg/dL (70-100) Calcium 8.5 mg/dL mg/dL (8.5-10.4) Total Bilirubin 0.4 mg/dL mg/dL (0.1-1.4) Conjugated Bilirubin 0.4 mg/dL mg/dL (0.0-0.5) Unconjugated Bilirubin 0.0 mg/dL mg/dL (0.0-1.1) AST 25 IU/L IU/L (14-46) ALT 30 IU/L IU/L (9-52) Alkaline Phosphatase 87 IU/L IU/L (38-126) Total Protein 6.2 g/dL L g/dL (6.3-8.2) Albumin 3.1 g/dL L g/dL (3.5-5.0) Lipase 258 IU/L IU/L (23-300) Urine Color YELLOW Urine Appearance HAZY Urine pH 5.0 (5.0-7.5) Ur Specific [place] 1.016 (1.002-1.030) Urine Protein 3+ H (NEGATIVE) Urine Ketones NEGATIVE (NEGATIVE) Urine Blood NEGATIVE (NEGATIVE) Urine Nitrate NEGATIVE (NEGATIVE) Urine Bilirubin NEGATIVE (NEGATIVE) Urine Urobilinogen NEGATIVE EU EU (0.2-1.0) Ur Leukocyte Esterase NEGATIVE (NEGATIVE) Urine RBC 1-3 /hpf /hpf (0-3) Urine WBC 25-50 /hpf H /hpf (0-3) Ur Epithelial Cells TRACE /lpf /lpf (NONE-1+) Amorphous Sediment PRESENT /hpf /hpf (NONE-1+) Hyaline Casts 1-5 /lpf /lpf (0-1) Urine Mucus TRACE /lpf /lpf (NONE-1+) Urine Glucose NEGATIVE (NEGATIVE) Medications Given: Discontinued Medications Sodium Chloride (Ns) 1,000 mls @ 0 mls/hr IV ONCE ONE; Wide Open PRN Reason: Protocol Stop: 11/24/17 16:10 Last Admin: 11/24/17 17:06 Dose: 500 mls Ceftriaxone Sodium 1 gm/ (Sterile Water) 10 mls @ 150 mls/hr IV EDNOW ONE PRN Reason: Protocol Stop: 11/24/17 18:35 Last Admin: 11/24/17 18:54 Dose: Not Given Ceftriaxone Sodium/Dextrose (Rocephin 1 Gm (Premix)) 50 mls @ 100 mls/hr IV ONCE ONE Stop: 11/24/17 19:14 Last Admin: 11/24/17 19:19 Dose: Not Given General Time Seen by Provider: 11/24/17 16:08 Initial Vital Signs: Initial Vital Signs Temperature (C) 37.5 C 11/24/17 15:49 Heart Rate 76 11/24/17 15:49 Respiratory Rate 18 11/24/17 15:49 Blood Pressure 163/59 H 11/24/17 15:49 O2 Sat (%) 87 L 11/24/17 15:49 O2 Delivery Mode Nasal Cannula O2 (L/minute) 2 Allergies/Adverse Reactions: ciprofloxacin Allergy (Verified 11/12/17 20:05) Sulfa (Sulfonamide Antibiotics) Allergy (Verified 11/12/17 20:05) Home Medications: Medication Instructions Recorded Acetaminophen [Tylenol ES 500 mg 500 mg PO BID 11/12/17 (*)] Acetaminophen [Tylenol ES 500 mg 500 mg PO Q6 PRN 11/12/17 (*)] Ascorbic Acid [Vitamin C 250 mg 250 mg PO BID 11/12/17 (*)] Bisacodyl [Dulcolax] 10 mg RC DAILY PRN 11/12/17 Calcium Carbonate [Tums 500MG (*)] 500 mg PO Q4 PRN 11/12/17 Cyanocobalamin [Vitamin B12 (*)] 1,000 mcg PO DAILY 11/12/17 Docusate Sodium [Colace] 200 mg PO BID 11/12/17 Ergocalciferol (Vitamin D2) 50,000 unit PO DODGE 11/12/17 [Vitamin D2] FLUoxetine [Prozac 10 MG (*)] 10 mg PO DAILY 11/12/17 FLUoxetine [Prozac 20 MG (*)] 20 mg PO DAILY 11/12/17 Ferrous Sulfate [Ferrous Sulf 325 325 mg PO BID 11/12/17 MG (*)] Fluticasone Nasal [Flonase Nasal 1 sprays NASAL BID 11/12/17 [place]] Herbals/Supplements -Info Only 1 ea PO DAILY 11/12/17 Hydralazine HCl 100 mg PO TID 11/12/17 Hydrocortisone 1% [Hydrocortisone 1 lizabeth TP Q4 PRN 11/12/17 1% cream (*)] Insulin Glargine [Lantus 100 16 units SC HS 11/12/17 UNITS/ML (*)] Insulin Regular Human [Humulin R 6 unit SC HS PRN 11/12/17 100 units/ml (*)] Ipratropium/Albuterol [Duoneb (*)] 3 ml IH QID 11/12/17 Levothyroxine [Synthroid 75 mcg 75 mcg PO DAILY06 11/12/17 (*)] Lidocaine 5% [Lidocaine 5% Oint] 1 lizabeth TP TID PRN 11/12/17 Methenamine Ghulam [Hiprex 1 gm (*)] 0.5 gm PO BID 11/12/17 Metoprolol Tartrate [Lopressor 25 25 mg PO BID 11/12/17 mg (*)] Nystatin Powder [Mycostatin Powder] 1 lizabeth TP Q8 PRN 11/12/17 Omeprazole 20 mg PO DAILY 11/12/17 Ondansetron Odt [Zofran Odt 4 mg 4 mg PO Q8 PRN 11/12/17 (*)] Polyethylene Glycol 3350 [Miralax 17 gm PO DAILY PRN 11/12/17 17 gm (*)] Polyethylene Glycol 3350 [Miralax 17 gm PO MOTH@09 11/12/17 17 gm (*)] Pregabalin [Lyrica] 25 mg PO BID 11/12/17 Sennosides 8.6 mg PO BID 11/12/17 Sennosides/Docusate Sodium 1 each PO DAILY PRN 11/12/17 [Senokot-S] Simethicone [Gas Relief] 80 mg PO Q6 PRN 11/12/17 Sodium Bicarbonate [Na Bicarb] 650 mg PO DAILY 11/12/17 Vitamin B Complex/Folic Acid 0.4 mg PO DAILY 11/12/17 [B-Complex Tablet] amLODIPine BESYLATE [Norvasc 10 mg 10 mg PO DAILY 11/12/17 (*)] guaiFENesin [Mucinex 600 MG (*)] 600 mg PO BID 11/12/17 guaiFENesin/DEXTROMETHORPHAN 10 ml PO Q6 PRN 11/12/17 [Robitussin Dm Oral Liquid (*)] Lidocaine 2% Jelly [Lidocaine 2% 1 lizabeth TP Q2 PRN jelly 11/18/17 Jelly (*)] PE/Shark Liver/Gly/Pet,Wh 1 lizabeth [place] BID crtube 11/18/17 [Preparation H Cream (*)] Phenylephrine HCl [Preparation H 1 supp [place] TID PRN supp 11/18/17 Supp] Amoxicillin/Clavulanate Pot 875 mg PO BID #14 tab 11/24/17 [Augmentin 875Mg] Departure - Departure Disposition: Home, Routine, Self-Care Clinical Impression: UTI (urinary tract infection) Condition: Good Instructions: Urinary Tract Infection in Women (ED) Additional Instructions: Take Augmentin as prescribed, make sure to finish the entire prescription even if you symptoms improve. Follow-up with your primary doctor within 72 hours. Return to the Emergency Department for fever, worsening pain, flank pain or failure to improve within 72 hours. It is possible that the bacteria causing your infection is resistant to the antibiotic we've placed you on. We have sent a urine for culture, if this comes back with a resistant bacteria, we will call you at the number you provided to us. Referrals: Ross Amaya DO [Doctor of Osteopathy] - As per Instructions Prescriptions: Amoxicillin/Clavulanate Pot [Augmentin 875Mg] 875 mg PO BID #14 tab Report Scribed for: Chris Angel Report Scribed by: Kelly Allen Date of Report: 11/24/17 Time of Report: 16:14
[2017-11-24 16:20] LABS: PLATELET COUNT 297 10^3/uL (150-400)
[2017-11-24 17:07] VITALS: O2SAT 100
[2017-11-24] MEDS ORDERED: cefTRIAXone 1 GM in STERILE WATER INJ 10 ML IV ONE (18:32)
[2017-11-24] MEDS ORDERED: cefTRIAXone 1 GM/DEXTROSE 1 GM/50 ML BAG IV ONE (18:38)
[2017-11-24] MEDS ORDERED: AMOXICILLIN/CLAVULANATE POT 875/125 MG TAB PO ONE (19:06)
[2017-11-24 21:03] VITALS: BP 187/83; PULSE 84; TEMP 98.8
== END 2017-11-24 20:56 | disposition home or self-care (01) ==
LOC: EDUNIT#
DX: N39.0 Urinary tract infection, site not specified (principal); I13.0 Hypertensive heart and chronic kidney disease with heart failure and stage 1 through stage 4 chronic kidney disease, or unspecified chronic kidney disease; I50.9 Heart failure, unspecified; N18.3 Chronic kidney disease, stage 3 (moderate); E11.9 Type 2 diabetes mellitus without complications; E86.9 Volume depletion, unspecified; Z79.4 Long term (current) use of insulin
CPT/HCPCS: J0696